=== PATIENT | male | born 1945 | race Two or more races ===

== ENCOUNTER 2020-03-12 08:50 | Outpatient (REF) | payer MEDICARE, SELFPAY ==
[2020-03-12 11:37] LABS: Alanine Aminotransferase 43 U/L (0-40); Albumin Level 4.1 g/dL (3.5-5.0); Alkaline Phosphatase 76 U/L (39-117); Anion Gap 12 (12-20); Aspartate Amino Transferase 31 U/L (5-37); Bilirubin Total 0.7 mg/dL (0.0-1.0); Blood Urea Nitrogen 15 mg/dL (9-16); Calcium 8.9 mg/dL (8.4-10.2); Carbon Dioxide 27 mmol/L (22-29); Chloride 105 mmol/L (96-108); Cholesterol 187 mg/dL; Estimated Glomerular Filt Rate > 60; Glucose Fasting 91 mg/dL (60-99); HDL Cholesterol 34 mg/dL; LDL Cholesterol Calculated 115 mg/dl; Potassium 4.5 mmol/l (3.3-5.1); Sodium 139 mmol/L (135-145); Total Protein 6.8 g/dL (6.5-8.0); Triglycerides 192 mg/dL
[2020-03-12 12:01] LABS: TSH reflex Free T4 0.72 mIU/mL (0.32-4.0)
== END 2020-03-12 08:51 | disposition home or self-care (01) ==
LOC: HO.HMGCLDS 08:50
PROVIDERS: PCP Nurse Practitioner Family; Visit Provider Nurse Practitioner Family
DX: G47.00 Insomnia, unspecified (principal); I10 Essential (primary) hypertension
CPT/HCPCS: 80053; 80061; 84443

== ENCOUNTER 2020-04-04 07:42 | Outpatient (REF) | payer MEDICARE, SELFPAY | END 2020-04-04 07:43 | disposition home or self-care (01) | LOC: HO.LAB 07:42 | PROVIDERS: PCP Nurse Practitioner Family; Visit Provider Internal Medicine | DX: Z20.828 Contact with and (suspected) exposure to other viral communicable diseases (principal) | CPT/HCPCS: C9803; U0003 ==

== ENCOUNTER 2020-07-04 14:50 | Outpatient (REF) | payer OTHER, SELFPAY ==
--- NOTE | ~2020-07-04 | US_ITS ---
EXAMINATION: US RETROPERITONEAL LIMITED (RENAL ONLY) CLINICAL INFORMATION: Unspecified abdominal pain. COMPARISON: Ultrasound abdominal aorta 09/08/2018 and ultrasound abdomen 11/23/2017. CT abdomen pelvis 02/18/2017. TECHNIQUE: Real-time imaging of the kidneys. FINDINGS: RIGHT KIDNEY: 12.0 x 5.2 x 6.3 cm (SAG x AP x TRV). The kidney is normal in size, contour, and echogenicity. Renal cortical thickness is normal. No calculi or focal parenchymal lesions. No hydronephrosis. LEFT KIDNEY: 11.0 x 6.3 x 5.3 cm (SAG x AP x TRV). The kidney is normal in size, contour, and echogenicity. Renal cortical thickness is normal. No renal calculi or hydronephrosis. There is anechoic cyst midpole measuring 3.0 x 3.2 x 4.1 cm US/US renal BI IMPRESSION: Anechoic cyst midpole left kidney. There are no echogenic stones or hydronephrosis.
[2020-07-04 11:14] LABS: MANUAL DIFF FLAG NO
[2020-07-04 11:17] LABS: Glucose Urine UA NEG (NEG); Leukocyte Esterase Urine NEG (NEG); Nitrite Urine NEG (NEG); Specific Gravity - Urine 1.025 (1.005-1.025); Urine Blood NEG (NEG); Urine Ketones NEG (NEG); Urine Protein NEG (NEG-TRACE)
[2020-07-04 11:20] LABS: Appearance Urine CLEAR; Color Urine YELLOW
[2020-07-04 11:27] LABS: Basophils Percent Auto 0.6 % (0-2); Eosinophils Absolute Auto 0.1 X10*3/uL (0.0-0.4); Eosinophils Percent Auto 2.3 % (0-4); Hematocrit 43.8 % (42-52); Hemoglobin 13.9 g/dl (14.0-18.0); Imm Gran Abs Auto 0.01 X10*3/uL (0.00-0.03); Imm Gran Pct Auto 0.2 % (0.0-0.4); Lymphocytes Absolute Auto 1.8 X10*3/uL (1.2-4.9); Lymphocytes Percent Auto 34.2 % (20-40); Mean Corpuscular HGB Conc 31.7 g/dl (31.0-36.0); Mean Corpuscular Hemoglobin 29.6 pg (27.0-33.0); Mean Corpuscular Volume 93.4 fL (80-98); Monocytes Absolute Auto 0.4 X10*3/uL (0.1-1.2); Monocytes Percent Auto 8.3 % (2-11); Neutrophils Absolute Auto 2.8 X10*3/uL (2.0-8.3); Neutrophils Percent Auto 54.4 % (45-73); Platelet Count 232 X10*3/uL (160-400); Red Blood Count 4.69 X10*6/uL (4.60-5.80); Red Cell Distribution Width 12.6 % (11.0-16.0); White Blood Count 5.2 X10*3/uL (4.8-10.8)
[2020-07-04 11:33] LABS: RBC Urine 0 /HPF (0); Squamous Epithelial Cell Urine TRACE /LPF; WBC Urine 0 /HPF (0-4)
[2020-07-04 11:48] LABS: Alanine Aminotransferase 27 U/L (0-40); Albumin Level 4.1 g/dL (3.5-5.0); Alkaline Phosphatase 72 U/L (39-117); Anion Gap 15 (12-20); Aspartate Amino Transferase 22 U/L (5-37); Bilirubin Total 0.7 mg/dL (0.0-1.0); Blood Urea Nitrogen 21 mg/dL (9-16); Calcium 8.8 mg/dL (8.4-10.2); Carbon Dioxide 26 mmol/L (22-29); Chloride 105 mmol/L (96-108); Estimated Glomerular Filt Rate > 60; Glucose Random 95 mg/dL (60-115); Potassium 4.7 mmol/L (3.3-5.1); Sodium 141 mmol/L (135-145); Total Protein 6.7 g/dL (6.5-8.0)
== END 2020-07-04 14:51 | disposition home or self-care (01) ==
LOC: HO.US 14:50
PROVIDERS: PCP Nurse Practitioner Family; Visit Provider Nurse Practitioner Family
DX: R10.9 Unspecified abdominal pain (principal)
CPT/HCPCS: 36415; 76775; 80053; 81001; 85025; 87086

== ENCOUNTER 2020-09-24 07:05 | Outpatient (REF) | payer MEDICARE, SELFPAY ==
[2020-09-24 08:14] LABS: Prostate Specific Antigen 5.32 ng/mL (<0.05-4.0)
== END 2020-09-24 07:06 | disposition home or self-care (01) ==
LOC: HO.LAB 07:05
PROVIDERS: Visit Provider Urology
DX: R35.1 Nocturia (principal)
CPT/HCPCS: 36415; 84153

== ENCOUNTER → 2020-09-25 09:50 | Outpatient (BNVA) | payer MEDICARE, SELFPAY | PROVIDERS: Visit Provider Urology | DX: N40.1 Benign prostatic hyperplasia with lower urinary tract symptoms (principal); R97.20 Elevated prostate specific antigen [PSA] | CPT/HCPCS: 99212 ==

== ENCOUNTER 2021-01-10 08:03 | Outpatient (REF) | payer OTHER, SELFPAY ==
[2021-01-10 11:09] LABS: Appearance Urine CLEAR; Color Urine YELLOW; Glucose Urine UA NEG (NEG); Leukocyte Esterase Urine NEG (NEG); Nitrite Urine NEG (NEG); Specific Gravity - Urine <= 1.005 (1.005-1.025); Urine Blood NEG (NEG); Urine Ketones NEG (NEG); Urine Protein NEG (NEG-TRACE)
[2021-01-10 11:16] LABS: MANUAL DIFF FLAG NO
[2021-01-10 11:24] LABS: Basophils Percent Auto 0.5 % (0-2); Eosinophils Absolute Auto 0.2 X10*3/uL (0.0-0.4); Eosinophils Percent Auto 3.4 % (0-4); Hematocrit 41.1 % (42-52); Hemoglobin 13.3 g/dl (14.0-18.0); Imm Gran Abs Auto 0.01 X10*3/uL (0.00-0.03); Imm Gran Pct Auto 0.2 % (0.0-0.4); Lymphocytes Absolute Auto 1.5 X10*3/uL (1.2-4.9); Lymphocytes Percent Auto 26.4 % (20-40); Mean Corpuscular HGB Conc 32.4 g/dl (31.0-36.0); Mean Corpuscular Hemoglobin 29.4 pg (27.0-33.0); Mean Corpuscular Volume 90.7 fL (80-98); Mean Platelet Volume 10.6 fL (9.4-12.4); Monocytes Absolute Auto 0.4 X10*3/uL (0.1-1.2); Monocytes Percent Auto 6.9 % (2-11); Neutrophils Absolute Auto 3.7 X10*3/uL (2.0-8.3); Neutrophils Percent Auto 62.6 % (45-73); Platelet Count 207 X10*3/uL (160-400); Red Blood Count 4.53 X10*6/uL (4.60-5.80); Red Cell Distribution Width 12.5 % (11.0-16.0); White Blood Count 5.8 X10*3/uL (4.8-10.8)
[2021-01-10 11:43] LABS: Alanine Aminotransferase 29 U/L (0-40); Albumin Level 3.8 g/dL (3.5-5.0); Alkaline Phosphatase 70 U/L (39-117); Anion Gap 11 (12-20); Aspartate Amino Transferase 26 U/L (5-37); Bilirubin Total 0.6 mg/dL (0.0-1.0); Blood Urea Nitrogen 16 mg/dL (9-16); Calcium 8.7 mg/dL (8.4-10.2); Carbon Dioxide 25 mmol/L (22-29); Chloride 111 mmol/L (96-108); Cholesterol 181 mg/dL; Estimated Glomerular Filt Rate > 60; Glucose Fasting 98 mg/dL (60-99); HDL Cholesterol 33 mg/dL; LDL Cholesterol Calculated 118 mg/dl; Potassium 4.3 mmol/L (3.3-5.1); Sodium 143 mmol/L (135-145); Total Protein 6.3 g/dL (6.5-8.0); Triglycerides 153 mg/dL
[2021-01-10 12:07] LABS: TSH reflex Free T4 0.87 uIU/mL (0.32-4.0)
== END 2021-01-10 08:04 | disposition home or self-care (01) ==
LOC: HO.HMGCLDS 08:03
PROVIDERS: PCP Nurse Practitioner Family; Visit Provider Nurse Practitioner Family
DX: Z00.00 Encounter for general adult medical examination without abnormal findings (principal)
CPT/HCPCS: 36415; 80053; 80061; 81003; 84443; 85025

== ENCOUNTER 2021-01-24 | Outpatient (REF) | payer OTHER, SELFPAY ==
[2021-01-24 11:38] LABS: OBS Int Ctl Valid YES; OBS1 NEGATIVE (NEGATIVE); OBS2 NEGATIVE (NEGATIVE); OBS3 NEGATIVE (NEGATIVE)
== END 2021-01-24 00:01 | disposition home or self-care (01) ==
LOC: HO.HMGCLNP
PROVIDERS: Visit Provider Nurse Practitioner Family
DX: Z87.19 Personal history of other diseases of the digestive system (principal)
CPT/HCPCS: 82270

== ENCOUNTER 2021-07-04 08:03 | Emergency (ER) | payer OTHER, SELFPAY ==
--- NOTE | 2021-07-04 08:10 | ECG_ITS ---
Test Reason : abdominal pain Blood Pressure : / mmHG Vent. Rate : 078 BPM Atrial Rate : 078 BPM P-R Int : 192 ms QRS Dur : 094 ms QT Int : 366 ms P-R-T Axes : 031 -22 -11 degrees QTc Int : 417 ms Normal sinus rhythm Septal infarct (cited on or before 02-JAN-2020) - could be related to lead placement Nonspecific ST and T wave abnormality Borderline ECG When compared with ECG of 02-JAN-2020 12:13, Questionable change in initial forces of Septal leads Referred By: Jennifer Sanders Electronically Signed By:JOSHUA HAY
--- NOTE | 2021-07-04 08:28 | ED.GENADULT ---
HPI - General Adult General Chief complaint: Headache Stated complaint: ABD PAIN,N/V,FULL VACC Time Seen by Provider: 07/04/21 08:09 Source: patient and EMS Mode of arrival: EMS Limitations: no limitations History of Present Illness HPI narrative: Patient comes to emergency room complaining of 2 days of generalized malaise, headache, diffuse body aches, mild abdominal cramping. Patient denies fever, burning of chills, no UTI or URI symptoms. Patient states he has a bit of chest pain, back pain, but in general everything hurts. Patient denies shortness of breath Related Data Home Medications Medication Instructions Recorded Confirmed gabapentin 300 mg capsule 0 mg PO 02/23/20 01/01/21 Previous Rx's Medication Instructions Recorded zolpidem 5 mg tablet 5 mg PO BEDTIME 30 Days #30 tab 03/27/20 ferrous sulfate 325 mg (65 mg 325 mg PO DAILY #90 tab 08/08/20 iron) tablet furosemide 20 mg tablet 20 mg PO DAILY PRN 90 Days #90 tab 08/08/20 finasteride 5 mg tablet 5 mg PO DAILY 90 Days #90 tab 09/25/20 amlodipine 5 mg tablet 5 mg PO DAILY 90 Days #90 tab 03/14/21 oseltamivir 75 mg capsule (Tamiflu) 75 mg PO BID 5 Days #10 cap 07/04/21 Allergies Allergy/AdvReac Type Severity Reaction Status Date / Time trazodone [TRAZODONE] Allergy Severe ANAPHYLAXIS Verified 01/01/21 10:23 advil PM Allergy Unknown stomach Uncoded 07/02/20 08:17 upset Review of Systems Review of Systems: Constitutional : No Weight loss, No Fever, No Chills, No Night Sweats, complaining of fatigue and generalized malaise for today's ENT/Mouth : No Hearing loss, No Ear Pain, No Nasal Congestion, No Sinus Pain, No Hoarseness, No sore throat, No Rhinorrhea, No Swallowing Difficulty Eyes: No Eye Pain, No Swelling, No Redness, No Foreign Body, No Discharge, No Vision Changes Cardiovascular : Complaining of nonspecific chest discomfort, no significant Chest Pain, No SOB, No Dyspnea on Exertion, No Orthopnea, No Edema, No Palpitations Respiratory : No Cough, No Sputum, No Wheezing, No Smoke Exposure, No Dyspnea Gastrointestinal : No Nausea, No Vomiting, No Diarrhea, No Constipation, No abdominal Pain only generalized discomfort/cramping, No Hematochezia, No Melena Genitourinary : no irregular bleeding, No Dysuria, No Urinary Frequency, No Hematuria, No Urinary Incontinence, No Urgency, No Flank Pain, No Urinary Flow Changes, No Hesitancy Musculoskeletal : No joint pain, complaining of diffuse Myalgias, No Joint Swelling Skin : No Skin Lesions, No rash Neuro : No Weakness, No Numbness, No Paresthesias, No Loss of Consciousness, No Dizziness, complaining of mild Headache Psych : No Anxiety/Panic, No Depression, No SI/HI/AH/VH, No Social Issues, Heme/Lymph: No Bruising, No Bleeding,No Lymphadenopathy Endocrine : No Polyuria, No Polydipsia, No Temperature Intolerance [facility] Past Medical History Medical History Anemia Aortic insufficiency Iron deficiency Mitral regurgitation PVD (peripheral vascular disease) Surgical History H/O colonoscopy History of inguinal hernia repair Family History Family History Father No problems noted. Mother No problems noted. Social History Social History Alcohol intake: current Alcohol intake frequency: does not drink Patient Tobacco Use Status: Current everyday Tobacco user Tobacco use type: Cigarette Cigarettes Per Day: 4 e-Cigarette/Vaping Use: Never Used Second Hand Smoke Exposure: No Use of substances other than those prescribed or required for medical reasons: No Advance Directives: No Advance Directives Information Provided: Yes Current occupational status: retired Physical Exam ED Vital Signs: Vital Signs - 24 hr 07/04/21 08:42 07/04/21 08:53 07/04/21 11:33 Temperature 99.7 F 100.6 F H 99.5 F Pulse Rate 80 69 Respiratory Rate 18 17 Blood Pressure 158/92 H 130/72 Pulse Oximetry 93 94 BMI result Body Mass Index 26.4 Const Other: Appearance: Alert. Oriented X3. No acute distress. Eyes: Pupils equal, round and reactive to light. ENT: Pharynx normal. Neck: Normal inspection. Neck supple. No lymph nodes noted. No crepitus CVS: Normal heart rate and rhythm. Pulses normal. Normal S1 and S2 Respiratory: No respiratory distress. Breath sounds normal. No Wheezing. No rales Abdomen: Soft and nontender. No rigidity. No distention. Skin: Skin warm and dry. Normal skin color. Normal skin turgor. Extremities: No lower extremity edema. No Lacerations. No Rash Neuro: Oriented X 3. No motor deficit. No sensory deficit. Moving all extremities. No slurred speech. CN 2 through 12 grossly intact Psych: calm, cooperative, normal affect Course Course Course Narrative: At this time, viral syndrome is suspected. Vitals, labs pending. Patient will be giving IV fluids, Tylenol Patient tested positive for influenza. Patient was given the 1st dose of Tamiflu 75 mg. Patient's troponin will be rechecked at noon. Troponin is improved from the 1st troponin. Patient was given Tamiflu. Patient will follow up with his primary care physician. Medical Decision Making Lab Data Result diagrams: 07/04/21 09:05 07/04/21 09:05 Labs: Lab Results 07/04/21 07/04/21 07/04/21 Range/Units 09:04 09:05 09:05 WBC 5.9 (4.8-10.8) X10*3/uL RBC 4.52 L (4.60-5.80) X10*6/uL Hgb 13.4 L (14.0-18.0) g/dl Hct 41.1 L (42.0-52.0) % MCV 90.9 (80.0-98.0) fL MCH 29.6 (27.0-33.0) pg MCHC 32.6 (31.0-36.0) g/dl RDW 12.9 (11.0-16.0) % Plt Count 158 L (160-400) X10*3/uL MPV 10.4 (9.4-12.4) fL Immature Gran % (Auto) 0.5 H (0.0-0.4) % Neut % (Auto) 74.4 H (45-73) % Lymph % (Auto) 12.5 L (20-40) % [place] % (Auto) 12.1 H (2-11) % Eos % (Auto) 0.0 (0-4) % Baso % (Auto) 0.5 (0-2) % Lymph # (Auto) 0.7 L (1.2-4.9) X10*3/uL [place] # (Auto) 0.7 (0.1-1.2) X10*3/uL Eos # (Auto) 0.0 (0.0-0.4) X10*3/uL Baso # (Auto) 0.0 (0.0-0.2) X10*3/uL Abs Immat Gran (auto) 0.03 (0.00-0.03) X10*3/uL Absolute Neuts (auto) 4.4 (2.0-8.3) x10*3/uL Absolute Nucleated RBC 0.000 (0.0-0.012) X10*3/uL Nucleated RBC % (auto) 0.0 (0.0-0.2) /100WBC PT 13.7 H (9.9-13.0) SEC INR 1.2 H (0.9-1.1) Sodium (135-145) mmol/L Potassium (3.3-5.1) mmol/L Chloride (96-108) mmol/L Carbon Dioxide (22-29) mmol/L Anion Gap (12-20) BUN (9-16) mg/dL Creatinine (0.5-1.4) mg/dL Estim Creat Clear Calc Estimated GFR Random Glucose (60-115) mg/dL Lactic Acid 0.9 (0.5-2.0) mmol/L Calcium (8.4-10.2) mg/dL Magnesium (1.6-2.6) mg/dL Total Bilirubin (0.0-1.0) mg/dL Direct Bilirubin (0.0-0.5) mg/dL AST (5-37) U/L ALT (0-40) U/L Alkaline Phosphatase (39-117) U/L Troponin I High Sens (<3.5-35.0) ng/L Total Protein (6.5-8.0) g/dL Albumin (3.5-5.0) g/dL Lipase (8-78) U/L COVID-19 (DAVID) (Negative) COVID-19 Clin Com Influenza Type A (TREY) (Negative) Influenza Type B (TREY) (Negative) Influenza A & B Note 07/04/21 07/04/21 07/04/21 Range/Units 09:05 09:05 09:05 WBC (4.8-10.8) X10*3/uL RBC (4.60-5.80) X10*6/uL Hgb (14.0-18.0) g/dl Hct (42.0-52.0) % MCV (80.0-98.0) fL MCH (27.0-33.0) pg MCHC (31.0-36.0) g/dl RDW (11.0-16.0) % Plt Count (160-400) X10*3/uL MPV (9.4-12.4) fL Immature Gran % (Auto) (0.0-0.4) % Neut % (Auto) (45-73) % Lymph % (Auto) (20-40) % [place] % (Auto) (2-11) % Eos % (Auto) (0-4) % Baso % (Auto) (0-2) % Lymph # (Auto) (1.2-4.9) X10*3/uL [place] # (Auto) (0.1-1.2) X10*3/uL Eos # (Auto) (0.0-0.4) X10*3/uL Baso # (Auto) (0.0-0.2) X10*3/uL Abs Immat Gran (auto) (0.00-0.03) X10*3/uL Absolute Neuts (auto) (2.0-8.3) x10*3/uL Absolute Nucleated RBC (0.0-0.012) X10*3/uL Nucleated RBC % (auto) (0.0-0.2) /100WBC PT (9.9-13.0) SEC INR (0.9-1.1) Sodium 138 (135-145) mmol/L Potassium 3.7 (3.3-5.1) mmol/L Chloride 106 (96-108) mmol/L Carbon Dioxide 26 (22-29) mmol/L Anion Gap 10 L (12-20) BUN 14 (9-16) mg/dL Creatinine 0.82 (0.5-1.4) mg/dL Estim Creat Clear Calc 71.3 Estimated GFR > 60 Random Glucose 116 H (60-115) mg/dL Lactic Acid (0.5-2.0) mmol/L Calcium 8.5 (8.4-10.2) mg/dL Magnesium 1.9 (1.6-2.6) mg/dL Total Bilirubin 0.7 (0.0-1.0) mg/dL Direct Bilirubin 0.3 (0.0-0.5) mg/dL AST 22 (5-37) U/L ALT 30 (0-40) U/L Alkaline Phosphatase 65 (39-117) U/L Troponin I High Sens 12.8 (<3.5-35.0) ng/L Total Protein 6.3 L (6.5-8.0) g/dL Albumin 3.7 (3.5-5.0) g/dL Lipase 23 (8-78) U/L COVID-19 (DAVID) Negative (Negative) COVID-19 Clin Com See Note Influenza Type A (TREY) (Negative) Influenza Type B (TREY) (Negative) Influenza A & B Note 07/04/21 07/04/21 Range/Units 09:05 11:53 WBC (4.8-10.8) X10*3/uL RBC (4.60-5.80) X10*6/uL Hgb (14.0-18.0) g/dl Hct (42.0-52.0) % MCV (80.0-98.0) fL MCH (27.0-33.0) pg MCHC (31.0-36.0) g/dl RDW (11.0-16.0) % Plt Count (160-400) X10*3/uL MPV (9.4-12.4) fL Immature Gran % (Auto) (0.0-0.4) % Neut % (Auto) (45-73) % Lymph % (Auto) (20-40) % [place] % (Auto) (2-11) % Eos % (Auto) (0-4) % Baso % (Auto) (0-2) % Lymph # (Auto) (1.2-4.9) X10*3/uL [place] # (Auto) (0.1-1.2) X10*3/uL Eos # (Auto) (0.0-0.4) X10*3/uL Baso # (Auto) (0.0-0.2) X10*3/uL Abs Immat Gran (auto) (0.00-0.03) X10*3/uL Absolute Neuts (auto) (2.0-8.3) x10*3/uL Absolute Nucleated RBC (0.0-0.012) X10*3/uL Nucleated RBC % (auto) (0.0-0.2) /100WBC PT (9.9-13.0) SEC INR (0.9-1.1) Sodium (135-145) mmol/L Potassium (3.3-5.1) mmol/L Chloride (96-108) mmol/L Carbon Dioxide (22-29) mmol/L Anion Gap (12-20) BUN (9-16) mg/dL Creatinine (0.5-1.4) mg/dL Estim Creat Clear Calc Estimated GFR Random Glucose (60-115) mg/dL Lactic Acid (0.5-2.0) mmol/L Calcium (8.4-10.2) mg/dL Magnesium (1.6-2.6) mg/dL Total Bilirubin (0.0-1.0) mg/dL Direct Bilirubin (0.0-0.5) mg/dL AST (5-37) U/L ALT (0-40) U/L Alkaline Phosphatase (39-117) U/L Troponin I High Sens 9.6 (<3.5-35.0) ng/L Total Protein (6.5-8.0) g/dL Albumin (3.5-5.0) g/dL Lipase (8-78) U/L COVID-19 (DAVID) (Negative) COVID-19 Clin Com Influenza Type A (TREY) Positive A (Negative) Influenza Type B (TREY) Negative (Negative) Influenza A & B Note See Note Discharge Plan Discharge Clinical Impression: Influenza A Patient Disposition: Home, Self-Care Instructions: Influenza (ED) Additional Instructions: Please follow-up with your primary care physician tomorrow. If you have any worsening or new symptoms, please return to the emergency room or call 911 Prescriptions: New oseltamivir [Tamiflu] 75 mg capsule 75 mg PO BID 5 Days Qty: 10 0RF No Action zolpidem 5 mg tablet 5 mg PO BEDTIME 30 Days Qty: 30 0RF amlodipine 5 mg tablet 5 mg PO DAILY 90 Days Qty: 90 0RF gabapentin 300 mg capsule 0 mg PO 0RF ferrous sulfate 325 mg (65 mg iron) tablet 325 mg PO DAILY Qty: 90 0RF furosemide 20 mg tablet 20 mg PO DAILY PRN (Reason: edema) 90 Days Qty: 90 0RF finasteride 5 mg tablet 5 mg PO DAILY 90 Days Qty: 90 1RF
[2021-07-04 08:42] VITALS: BP 130/82; BP 158/92; PULSE 80; PULSE 88; RESP 18; TEMP 37.6; O2SAT 93; O2SAT 98; BMI 26.4
[2021-07-04 08:53] VITALS: TEMP 38.1
[2021-07-04] MEDS: 0.9 % Sodium Chloride 1,000 ML 999 ML IVCONT (09:13)
[2021-07-04] MEDS: Acetaminophen 325 MG TABLET 650 MG PO (09:13)
[2021-07-04 09:16] LABS: MANUAL DIFF FLAG NO
[2021-07-04 09:19] LABS: Basophils Percent Auto 0.5 % (0-2); Hematocrit 41.1 % (42.0-52.0); Hemoglobin 13.4 g/dl (14.0-18.0); Imm Gran Abs Auto 0.03 X10*3/uL (0.00-0.03); Imm Gran Pct Auto 0.5 % (0.0-0.4); Lymphocytes Absolute Auto 0.7 X10*3/uL (1.2-4.9); Lymphocytes Percent Auto 12.5 % (20-40); Mean Corpuscular HGB Conc 32.6 g/dl (31.0-36.0); Mean Corpuscular Hemoglobin 29.6 pg (27.0-33.0); Mean Corpuscular Volume 90.9 fL (80.0-98.0); Mean Platelet Volume 10.4 fL (9.4-12.4); Monocytes Absolute Auto 0.7 X10*3/uL (0.1-1.2); Monocytes Percent Auto 12.1 % (2-11); Neutrophils Absolute Auto 4.4 x10*3/uL (2.0-8.3); Neutrophils Percent Auto 74.4 % (45-73); Platelet Count 158 X10*3/uL (160-400); Red Blood Count 4.52 X10*6/uL (4.60-5.80); Red Cell Distribution Width 12.9 % (11.0-16.0); White Blood Count 5.9 X10*3/uL (4.8-10.8)
[2021-07-04 09:25] LABS: INTERNATIONAL NORM RATIO 1.2 (0.9-1.1); Prothrombin Time 13.7 SEC (9.9-13.0)
[2021-07-04 09:29] LABS: Lactic Acid 0.9 mmol/L (0.5-2.0)
[2021-07-04 09:35] LABS: Alanine Aminotransferase 30 U/L (0-40); Albumin Level 3.7 g/dL (3.5-5.0); Alkaline Phosphatase 65 U/L (39-117); Anion Gap 10 (12-20); Aspartate Amino Transferase 22 U/L (5-37); Bilirubin Direct 0.3 mg/dL (0.0-0.5); Bilirubin Total 0.7 mg/dL (0.0-1.0); Blood Urea Nitrogen 14 mg/dL (9-16); Calcium 8.5 mg/dL (8.4-10.2); Carbon Dioxide 26 mmol/L (22-29); Chloride 106 mmol/L (96-108); Creatinine Clr Calc Pharmacy 71.3; Estimated Glomerular Filt Rate > 60; Glucose Random 116 mg/dL (60-115); Lipase 23 U/L (8-78); Magnesium 1.9 mg/dL (1.6-2.6); Potassium 3.7 mmol/L (3.3-5.1); Sodium 138 mmol/L (135-145); Total Protein 6.3 g/dL (6.5-8.0)
[2021-07-04 09:36] LABS: COVID-19 Test Negative (Negative); IDNOW Serial# 16C4AD1C
[2021-07-04 09:38] LABS: Troponin-I High Sensitivity 12.8 ng/L (<3.5-35.0)
[2021-07-04 09:46] LABS: IDNOW Serial# 08D9AD1C; Influenza A Positive (Negative); Influenza B2 Negative (Negative)
[2021-07-04] MEDS: Oseltamivir Phosphate 75 MG CAPSULE PO (10:18)
[2021-07-04 11:33] VITALS: BP 130/72; PULSE 69; RESP 17; TEMP 37.5; O2SAT 94
[2021-07-04 12:18] LABS: Troponin-I High Sensitivity 9.6 ng/L (<3.5-35.0)
[2021-07-04 13:59] VITALS: BP 140/72; PULSE 69; RESP 16; TEMP 37.2; O2SAT 95
== END 2021-07-04 14:02 | disposition home or self-care (01) ==
PROVIDERS: Emergency Provider Emergency Medicine; PCP Nurse Practitioner Family
DX: J11.1 Influenza due to unidentified influenza virus with other respiratory manifestations (principal); Z20.822 Contact with and (suspected) exposure to COVID-19; R50.9 Fever, unspecified
CPT/HCPCS: 36415; 80048; 80076; 83605; 83690; 83735; 84484; 85025; 85610; 87040; 87502; 87635; 93005; 96360; 99284; 99285

== ENCOUNTER 2021-07-09 07:41 | Outpatient (REF) | payer OTHER, SELFPAY ==
[2021-07-09 07:54] LABS: MANUAL DIFF FLAG NO
[2021-07-09 08:24] LABS: Basophils Percent Auto 0.5 % (0-2); Eosinophils Absolute Auto 0.1 X10*3/uL (0.0-0.4); Eosinophils Percent Auto 2.3 % (0-4); Hematocrit 41.9 % (42.0-52.0); Hemoglobin 13.6 g/dl (14.0-18.0); Imm Gran Abs Auto 0.01 X10*3/uL (0.00-0.03); Imm Gran Pct Auto 0.2 % (0.0-0.4); Lymphocytes Absolute Auto 2.5 X10*3/uL (1.2-4.9); Lymphocytes Percent Auto 44.1 % (20-40); Mean Corpuscular HGB Conc 32.5 g/dl (31.0-36.0); Mean Corpuscular Hemoglobin 29.3 pg (27.0-33.0); Mean Corpuscular Volume 90.3 fL (80.0-98.0); Mean Platelet Volume 10.8 fL (9.4-12.4); Monocytes Absolute Auto 0.4 X10*3/uL (0.1-1.2); Monocytes Percent Auto 7.4 % (2-11); Neutrophils Absolute Auto 2.5 x10*3/uL (2.0-8.3); Neutrophils Percent Auto 45.5 % (45-73); Platelet Count 180 X10*3/uL (160-400); Red Blood Count 4.64 X10*6/uL (4.60-5.80); Red Cell Distribution Width 12.5 % (11.0-16.0); White Blood Count 5.6 X10*3/uL (4.8-10.8)
[2021-07-09 09:43] LABS: PSA,Total (Free>4and<10) 4.04 ng/mL (0.00-4.00)
[2021-07-10 11:52] LABS: Free Prostate Spec Ag 0.5 ng/mL; Percent Free Prostate Spec Ag 15 % (calc) (>25); Prostate Specific Ag Total 3.3 ng/mL (< OR = 4.0)
== END 2021-07-09 07:42 | disposition home or self-care (01) ==
LOC: HO.LAB 07:41
PROVIDERS: Nurse Practitioner Family; Visit Provider Urology
DX: Z12.5 Encounter for screening for malignant neoplasm of prostate (principal); N40.1 Benign prostatic hyperplasia with lower urinary tract symptoms; N13.8 Other obstructive and reflux uropathy; Z87.19 Personal history of other diseases of the digestive system
CPT/HCPCS: 36415; 84153; 84154; 85025

== ENCOUNTER → 2021-07-17 12:52 | Outpatient (BNVA) | payer OTHER, SELFPAY | PROVIDERS: PCP Nurse Practitioner Family; Visit Provider Urology | DX: R97.20 Elevated prostate specific antigen [PSA] (principal) | CPT/HCPCS: 99212 ==

== ENCOUNTER 2021-08-15 07:58 | Outpatient (REF) | payer OTHER, SELFPAY ==
--- NOTE | ~2021-08-15 | XR_ITS ---
EXAMINATION: XR CHEST CLINICAL INFORMATION: Nicotine dependence COMPARISON: Chest radiograph from 01/02/2020 TECHNIQUE: 2 views of the chest were obtained. FINDINGS: Chronic interstitial lung markings. Slight bronchial thickening which can be seen in infectious/inflammatory etiologies. No pneumothorax. Trachea is midline. Cardiomediastinal silhouette is stable. Aorta demonstrates tortuosity. No large pleural effusion. Degenerative changes of the thoracolumbar spine. Soft tissues are unremarkable XR/XR chest 2V IMPRESSION: 1. Chronic interstitial lung markings. 2. Slight bronchial thickening which can be seen in infectious/inflammatory etiologies.
[2021-08-15 11:36] LABS: Appearance Urine CLEAR; Color Urine YELLOW; Glucose Urine UA NEG (NEG); Leukocyte Esterase Urine NEG (NEG); Nitrite Urine NEG (NEG); UACC Culture Trigger NO; Urine Blood TRACE (NEG); Urine Ketones NEG (NEG); Urine Protein NEG (NEG-TRACE)
[2021-08-15 12:09] LABS: Alanine Aminotransferase 16 U/L (0-40); Alkaline Phosphatase 61 U/L (39-117); Anion Gap 14 (12-20); Aspartate Amino Transferase 14 U/L (5-37); Bilirubin Total 0.7 mg/dL (0.0-1.0); Blood Urea Nitrogen 17 mg/dL (9-16); Calcium 9.3 mg/dL (8.4-10.2); Carbon Dioxide 23 mmol/L (22-29); Chloride 107 mmol/L (96-108); Cholesterol 179 mg/dL; Estimated Glomerular Filt Rate > 60; Glucose Random 104 mg/dL (60-115); HDL Cholesterol 31 mg/dL; LDL Cholesterol Calculated 117 mg/dl; Potassium 4.4 mmol/L (3.3-5.1); Sodium 140 mmol/L (135-145); Total Protein 6.6 g/dL (6.5-8.0); Triglycerides 158 mg/dL
[2021-08-15 12:16] LABS: TSH reflex Free T4 0.73 uIU/mL (0.32-4.0)
[2021-08-15 13:14] LABS: Squamous Epithelial Cell Urine 1+ /LPF
== END 2021-08-15 07:59 | disposition home or self-care (01) ==
LOC: HO.HMGCLDS 07:58
PROVIDERS: Visit Provider Nurse Practitioner Family
DX: R01.1 Cardiac murmur, unspecified (principal); R05.9 Cough, unspecified; F17.200 Nicotine dependence, unspecified, uncomplicated
CPT/HCPCS: 36415; 71046; 80053; 80061; 81001; 84443

== ENCOUNTER 2021-09-18 13:08 | Outpatient (REF) | payer OTHER, SELFPAY ==
--- NOTE | ~2021-09-18 | US_ITS ---
EXAMINATION: US RENAL CLINICAL INFORMATION: Left flank pain. COMPARISON: Ultrasound renal 07/04/2020. Ultrasound urinary bladder 11/05/2017. Ultrasound abdomen 11/23/2017. CT abdomen pelvis 02/18/2017. TECHNIQUE: Real-time imaging of the kidneys and bladder. FINDINGS: RIGHT KIDNEY: Absent. LEFT KIDNEY: 10.8 x 5.8 x 5.8 cm (SAG x AP x TRV). The kidney is normal in size, contour, and echogenicity. Renal cortical thickness is normal. No renal calculi or hydronephrosis. There is anechoic cyst in the upper pole measuring 5.7 x 3.4 x 3.6 cm and 1.8 x 1.2 x 1.2 cm. US/US renal LT IMPRESSION: 2 left renal cysts. No echogenic stones or hydronephrosis seen.
== END 2021-09-18 13:09 | disposition home or self-care (01) ==
LOC: HO.US 13:08
PROVIDERS: PCP Nurse Practitioner Family; Visit Provider Nurse Practitioner Family
DX: R10.9 Unspecified abdominal pain (principal); N28.1 Cyst of kidney, acquired
CPT/HCPCS: 76775

== ENCOUNTER 2022-01-28 07:37 | Outpatient (REF) | payer OTHER, SELFPAY | END 2022-01-28 07:38 | disposition home or self-care (01) | LOC: HO.LAB 07:37 | PROVIDERS: Visit Provider Urology | DX: Z12.5 Encounter for screening for malignant neoplasm of prostate (principal); R97.20 Elevated prostate specific antigen [PSA] | CPT/HCPCS: 36415; 84153 ==

== ENCOUNTER → 2022-01-31 13:33 | Outpatient (BNVA) | payer OTHER, SELFPAY | PROVIDERS: PCP Nurse Practitioner Family; Visit Provider Urology | DX: N40.1 Benign prostatic hyperplasia with lower urinary tract symptoms (principal); N13.8 Other obstructive and reflux uropathy; R97.20 Elevated prostate specific antigen [PSA] | CPT/HCPCS: Q3014 ==

== ENCOUNTER 2022-03-01 12:51 | Emergency (ER) | payer OTHER, SELFPAY ==
--- NOTE | ~2022-03-01 | US_ITS ---
EXAMINATION: US VENOUS ULTRASOUND WITH DOPPLER LOWER EXTREMITY, LEFT CLINICAL INFORMATION: Calf tenderness and pain. COMPARISON: None TECHNIQUE: Ultrasound of the deep veins is performed from the hip to the calf with compression sonography and color and pulse Doppler assessment. Spectral analysis with color-flow imaging is performed. FINDINGS: There is normal venous compression and respiratory variation and augmented flow. The visualized common femoral vein, superficial femoral vein, profunda femoral vein, popliteal vein, and the trifurcation region shows no evidence of deep venous thrombosis. There is no significant popliteal fossa cyst. If the patient's symptoms persist, followup ultrasound in 5 days 7 days might be of value to exclude proximal propagation from a non-visualized calf vein. US/US venous duplex LE LT IMPRESSION: No DVT demonstrated in the left lower extremity.
--- NOTE | ~2022-03-01 | XR_ITS ---
EXAMINATION: XR HAND, LEFT CLINICAL INFORMATION: Pain, swelling COMPARISON: None TECHNIQUE: PA, lateral, and oblique views of the left hand. FINDINGS: The bones and soft tissues are normal. No fracture. Alignment is anatomic. Joint spaces are maintained. No erosions or soft tissue calcifications. XR/XR hand LT 2V IMPRESSION: Normal left hand.
[2022-03-01 13:32] VITALS: BP 157/78; PULSE 70; RESP 16; TEMP 36.6; O2SAT 96; BMI 22.0
--- NOTE | 2022-03-01 13:33 | ED_ITS ---
HPI - General Adult General Chief complaint: Extremity Problem <Yenny Tolbert CNP - Last Filed: 03/01/22 13:44> Stated complaint: l hand swelling and l leg pain <Yenny Tolbert CNP - Last Filed: 03/01/22 13:44> Time Seen by Provider: 03/01/22 14:27 <Yenny Tolbert CNP - Last Filed: 03/01/22 13:44> Source: patient <JUAN R Napoles - Last Filed: 03/01/22 17:56> Mode of arrival: ambulatory <JUAN R Napoles - Last Filed: 03/01/22 17:56> Limitations: language barrier <JUAN R Napoles - Last Filed: 03/01/22 17:56> History of Present Illness HPI narrative: 76-year-old male with history of HTN, anemia, aortic insufficiency, mitral regurgitation, peripheral vascular disease who presents to the ER for evaluation of nontraumatic left hand swelling as well as left lower leg pain. He reports the pain and swelling in the hand started a couple of days ago. It is worse with palpation and making a fist. He denies any injury or trauma. He denies any weakness or numbness. He states his hand has felt a little warm. No open wounds. Left leg pain has been going on for about a month with no precipitating injury. He denies any swelling but reports pain along the back of his leg, both at rest and with movement. He states the pain is located in the back of his knee, his calf and down to his ankle. He denies any swelling. He denies any numbness, weakness tingling. No fever or chills. No shortness of breath or chest pain. <JUAN R Napoles - Last Filed: 03/01/22 17:56> MD complaint: Left hand pain and left lower leg pain <JUAN R Napoles - Last Filed: 03/01/22 17:56> Onset (ago): week(s) <JUAN R Napoles Last Filed: 03/01/22 17:56> Location: left, upper extremity and lower extremity <JUAN R Napoles Last Filed: 03/01/22 17:56> Radiation: non-radiation <JUAN R Napoles - Last Filed: 03/01/22 17:56> Severity: moderate <JUAN R Napoles - Last Filed: 03/01/22 17:56> Severity scale (1-10): 5 <JUAN R Napoles - Last Filed: 03/01/22 17:56> Quality: aching <JUAN R Napoles - Last Filed: 03/01/22 17:56> Pain Consistency: intermittent <JUAN R Napoles - Last Filed: 03/01/22 17:56> Relieving factors: none <JUAN R Napoles - Last Filed: 03/01/22 17:56> Exacerbating factors: none <JUAN R Napoles - Last Filed: 03/01/22 17:56> Associated symptoms: denies other symptoms <JUAN R Napoles - Last Filed: 03/01/22 17:56> Treatments prior to arrival: none <JUAN R Napoles - Last Filed: 03/01/22 17:56> Related Data Home medications: Previous Rx's Medication Instructions Recorded amlodipine 5 mg tablet 5 mg PO DAILY 90 days #90 tabs 08/13/21 zolpidem 5 mg tablet 5 mg PO BEDTIME 30 days #30 tabs 08/13/21 azithromycin 250 mg tablet See Rx Instructions PO .COMPLEX #6 08/15/21 tabs ferrous sulfate 325 mg (65 mg 325 mg PO DAILY #90 tabs 11/10/21 iron) tablet finasteride 5 mg tablet 5 mg PO DAILY 90 days #90 tabs 01/31/22 cephalexin 500 mg capsule 500 mg PO Q6H 7 days #28 caps 03/01/22 doxycycline hyclate 100 mg tablet 100 mg PO BID 7 days #14 tabs 03/01/22 <Yenny Tolbert CNP - Last Filed: 03/01/22 13:44> Allergies/adverse reactions: Allergies Allergy/AdvReac Type Severity Reaction Status Date / Time trazodone [TRAZODONE] Allergy Severe ANAPHYLAXIS Verified 01/31/22 13:34 advil PM Allergy Unknown stomach Uncoded 01/31/22 13:34 upset <Yenny Tolbert CNP - Last Filed: 03/01/22 13:44> Review of Systems Review of Systems: Constitutional: No Fever, No Chills Cardiovascular: No Chest Pain, No SOB, No Orthopnea, No Edema Respiratory: No Cough, No Sputum Gastrointestinal: No Nausea, No Vomiting, No Diarrhea, No abdominal Pain Genitourinary: No Dysuria, No Urinary Frequency, No Hematuria Musculoskeletal: + joint pain, + Myalgias Skin: No Skin Lesions, + rash Neuro: No Weakness, No Numbness, No Dizziness, No Headache Psych: No Anxiety/Panic, No Depression Heme/Lymph: No Bruising, No Lymphadenopathy <JUAN R Napoles - Last Filed: 03/01/22 17:56> [facility] Past Medical History Medical History: Medical History Anemia Aortic insufficiency Iron deficiency Mitral regurgitation PVD (peripheral vascular disease) <Yenny Tolbert CNP - Last Filed: 03/01/22 13:44> Surgical History: Surgical History H/O colonoscopy History of inguinal hernia repair <Yenny Tolbert CNP - Last Filed: 03/01/22 13:44> Family History Family History: Family History Father No problems noted. Mother No problems noted. <Yenny Tolbert CNP - Last Filed: 03/01/22 13:44> Social History Social History: Social History Alcohol intake: current Alcohol intake frequency: does not drink Patient Tobacco Use Status: Current everyday Tobacco user Tobacco use type: Cigarette Cigarettes Per Day: 6 e-Cigarette/Vaping Use: Never Used Second Hand Smoke Exposure: No Advance Directives: Yes Advance Directives Information Provided: No Advance Directives on File: No Current occupational status: retired <Yenny Tolbert CNP - Last Filed: 03/01/22 13:44> Physical Exam ED Vital Signs: Vital Signs - 24 hr 03/01/22 13:32 Temperature 98 F Pulse Rate 70 Respiratory Rate 16 Blood Pressure 157/78 H Pulse Oximetry 96 Oxygen Delivery Method Room Air BMI result Body Mass Index 22.0 <Yenny Tolbert CNP - Last Filed: 03/01/22 13:44> Vital Signs - 24 hr 03/01/22 13:32 Temperature 98 F Pulse Rate 70 Respiratory Rate 16 Blood Pressure 157/78 H Pulse Oximetry 96 Oxygen Delivery Method Room Air BMI result Body Mass Index 22.0 <JUAN R Napoles - Last Filed: 03/01/22 17:56> Appearance: Alert. Oriented X3. No acute distress. HEENT: normal inspection CVS: Normal heart rate and rhythm. Pulses normal. Respiratory: No respiratory distress. Skin: Skin warm and dry. Normal skin color. Normal skin turgor. No rashes. Extremities: Normal inspection of bilateral lower legs. No peripheral edema. There is tenderness of the left posterior calf and popliteal fossa area no palpable mass. Leg is warm and well perfused, neurovascularly intact distally. Steady gait. Dorsal aspect of the left hand with mild diffuse swelling, erythema and warmth. No open wounds. Equal repairer hairspring strength bilaterally. Neuro: Oriented X 3. No motor deficit. No sensory deficit. <JUAN R Napoles - Last Filed: 03/01/22 17:56> Course Course Course Narrative: RME: Patient is a 76 old male with a past medical history of anemia, aortic insufficiency, mitral regurgitation, PVD. Presents emergency department today for evaluation left hand swelling and pain, without precipitating injury (right hand dominant). Also complaining of left leg pain; from foot up to the knee x 1 month he has not seen a doctor for this and denies any precipitating injury. Denies personal history of DVT/PE personal history of cancer, recent prolonged immobilization, extensive travel. Denies any swelling, redness, weakness, or paresthesia to the extremity. PE: Left hand with dorsal swelling, redness, no warmth or obvious deformity. Full AROM to wrist and digits. bilateral LE 2+ DP/PT pulse, LLE without swelling, redness, warmth. Wells negative, does not appear consistent with DVT, pain likely consistent with PVD. Bilateral upper and lower extremities are neurovascularly intact distally. Plan: XR left hand, acetaminophen for pain. <Yenny Tolbert CNP - Last Filed: 03/01/22 13:44> Reevaluation(s) Reevaluation #1: X-ray of the hand is normal. His exam is consistent with an early cellulitis. No systemic signs of infection. Will start on oral antibiotics neb follow-up with his PCP. His lower extremity ultrasound did not show any evidence of DVT. Question PVD versus muscle strain as etiology of his pain. He is ambulating well. Will treat conservatively with [id number]-[id number] Tylenol and Motrin, have him see his PCP as well for this complaint. Patient stable for discharge home. <JUAN R Napoles - Last Filed: 03/01/22 17:56> Medications Administered Discontinued Medications Generic Name Dose Route Start Last Admin Trade Name Freq PRN Reason Stop Dose Admin Acetaminophen 975 mg 03/01/22 13:40 03/01/22 13:44 Acetaminophen 325 Mg Tablet PO 03/01/22 13:41 975 mg ONCE ONE Administration <Yenny Tolbert CNP - Last Filed: 03/01/22 13:44> Medications Administered Discontinued Medications Generic Name Dose Route Start Last Admin Trade Name Freq PRN Reason Stop Dose Admin Acetaminophen 975 mg 03/01/22 13:40 03/01/22 13:44 Acetaminophen 325 Mg Tablet PO 03/01/22 13:41 975 mg ONCE ONE Administration <JUAN R Napoles - Last Filed: 03/01/22 17:56> Discharge Plan Discharge Clinical Impression: Cellulitis of hand, left <Yenny Tolbert CNP - Last Filed: 03/01/22 13:44> Patient Disposition: Home, Self-Care <Yenny Tolbert CNP - Last Filed: 03/01/22 13:44> Instructions: Cellulitis (ED) <Yenny Tolbert CNP - Last Filed: 03/01/22 13:44> Additional Instructions: Your ultrasound did not show any evidence of blood clots. Recommend taking Tylenol as needed for your leg pain. Recommend taking the prescribed antibiotics for the swelling and redness of your hand. Use warm compresses to the area daily. Recommend following up with your doctor for further evaluation. If you develop new or worsening symptoms call 911 or come back to the ER for further evaluation. Chaney ultrasonido no mostr? ninguna evidencia de co?gulos de letitia. Recomiende vance Tylenol seg?n sea necesario para el dolor de piernas. Recomiende vance los antibi?ticos recetados para la hinchaz?n y el enrojecimiento de la mano. Use compresas tibias en el ?sofie todos los d?as. Recomiende un seguimiento con chaney m?dico para yanick evaluaci?n adicional. Si desarrolla s?ntomas nuevos o que empeoran, llame al 911 o regrese a la foreign de emergencias para yanick evaluaci?n adicional. <Yenny Tolbert CNP - Last Filed: 03/01/22 13:44> Prescriptions: New doxycycline hyclate 100 mg tablet 100 mg PO BID 7 Days Qty: 14 0RF cephalexin 500 mg capsule 500 mg PO Q6H 7 Days Qty: 28 0RF No Action azithromycin 250 mg tablet See Rx Instructions PO .COMPLEX Qty: 6 0RF Rx Instructions: For 250 mg dose pack: take 500 mg today (day 1), then 250 mg for 4 days (days 2-5) PO ferrous sulfate 325 mg (65 mg iron) tablet 325 mg PO DAILY Qty: 90 0RF zolpidem 5 mg tablet 5 mg PO BEDTIME 30 Days Qty: 30 1RF amlodipine 5 mg tablet 5 mg PO DAILY 90 Days Qty: 90 0RF finasteride 5 mg tablet 5 mg PO DAILY 90 Days Qty: 90 3RF <Yenny Tolbert CNP - Last Filed: 03/01/22 13:44> Referrals: Nayan Choe, [facility] [Primary Care Provider] - <Yenny Tolbert CNP - Last Filed: 03/01/22 13:44>
[2022-03-01] MEDS: Acetaminophen 325 MG TABLET 975 MG PO (13:44)
== END 2022-03-01 18:10 | disposition home or self-care (01) ==
PROVIDERS: Emergency Provider Emergency Medicine; PCP Nurse Practitioner Family
DX: L03.114 Cellulitis of left upper limb (principal); M79.662 Pain in left lower leg; M79.642 Pain in left hand; I10 Essential (primary) hypertension; F17.210 Nicotine dependence, cigarettes, uncomplicated; Z79.899 Other long term (current) drug therapy
CPT/HCPCS: 73120; 93971; 99283; 99284

== ENCOUNTER 2022-08-04 06:35 | Outpatient (REF) | payer OTHER, SELFPAY ==
[2022-08-04 08:20] LABS: PSA,Total (Free>4and<10) 6.26 ng/mL (0.00-4.00)
[2022-08-05 09:44] LABS: Free Prostate Spec Ag 0.7 ng/mL; Percent Free Prostate Spec Ag 13 % (calc) (>25); Prostate Specific Ag Total 5.5 ng/mL (< OR = 4.0)
== END 2022-08-04 06:36 | disposition home or self-care (01) ==
LOC: HO.LAB 06:35
PROVIDERS: Visit Provider Urology
DX: Z12.5 Encounter for screening for malignant neoplasm of prostate (principal); R97.20 Elevated prostate specific antigen [PSA]
CPT/HCPCS: 36415; 84153; 84154

== ENCOUNTER → 2022-08-05 12:26 | Outpatient (BNVA) | payer OTHER, SELFPAY | PROVIDERS: PCP Nurse Practitioner Family; Visit Provider Urology | DX: N40.1 Benign prostatic hyperplasia with lower urinary tract symptoms (principal); N13.8 Other obstructive and reflux uropathy; R33.9 Retention of urine, unspecified; R97.20 Elevated prostate specific antigen [PSA] | CPT/HCPCS: 99212 ==

== ENCOUNTER 2023-03-13 07:44 | Outpatient (REF) | payer OTHER, SELFPAY | END 2023-03-13 07:45 | disposition home or self-care (01) | LOC: HO.LAB 07:44 | PROVIDERS: PCP Nurse Practitioner Family; Visit Provider Urology | DX: Z12.5 Encounter for screening for malignant neoplasm of prostate (principal); R97.20 Elevated prostate specific antigen [PSA] | CPT/HCPCS: 36415; 84153 ==

== ENCOUNTER 2023-03-20 14:50 | Outpatient (AMB) | payer OTHER, SELFPAY ==
--- NOTE | 2023-03-20 15:16 | A.OFFVIS_ITS ---
Intake Intake Visit Reasons: 6M PSA(set) Intake Note: Patient is Present for Follow Up PSA Urology Medication: Finasteride Antibiotic Allergies: none Allergies trazodone [TRAZODONE] Allergy (Severe, Verified 08/05/22 13:42) ANAPHYLAXIS advil PM Allergy (Unknown, Uncoded 08/05/22 13:42) stomach upset Medication List - Last Reconciled 03/20/23 by Thanh Caceres MD amlodipine 5 mg PO DAILY 90 days azithromycin For 250 mg dose pack: take 500 mg today (day 1), then 250 mg for 4 days (days 2-5) PO [biofreeze roll-On As directed] cephalexin 500 mg PO Q6H 7 days doxycycline hyclate 100 mg PO BID 7 days ferrous sulfate 325 mg PO DAILY finasteride 5 mg PO DAILY 90 days finasteride 5 mg PO DAILY 90 days [Male Guard Pads As directed] zolpidem 5 mg PO BEDTIME 30 days HPI HPI Comments History of Present Illness Details Mr Turner is a very pleasant Mohawk speaking male. They are a patient of Dr. Nova. They are seen in the office today for the following urologic conditions. - BPH - incomplete bladder emptying - elevated PSA Mohawk translation provided in office by qualified biomedical equipment technician PSA has fallen on finasteride to 4.0 Would continue Six month repeat Lower Urinary Tract Symptoms: Current visit is for interval assessment of BPH symptoms Current treatment includes - no medication Prior therapy - alpha rachel, 5-AR, anti-muscarinic. Prostate Symptom Score Moderate (9-19), Bother 2 09/22 , Mild (0-8), Bother 2. Symptoms include frequency, urgency, weak stream, nocturia (>2), , and are improving. Prior Prostate Score moderate. PSA 03/22 4.1, 08/21 4.3, 09/22 4.4, 09/23 4.4, 09/24 PSA 5.3, 07/26 4.0 15%, 01/25 4.4 , 08/26 5.5 13% Prostate volume 30-50gm. Testing at next visit will include restart finasteride, repeat PSA in 6 months PFSH Medical History Anemia Aortic insufficiency Iron deficiency Mitral regurgitation PVD (peripheral vascular disease) Surgical History H/O colonoscopy History of inguinal hernia repair Family History Father No problems noted. Mother No problems noted. Social History Alcohol intake: current Alcohol intake frequency: does not drink Patient Tobacco Use Status: Current everyday Tobacco user Tobacco use type: Cigarette Cigarettes Per Day: 6 e-Cigarette/Vaping Use: Never Used Second Hand Smoke Exposure: No Current occupational status: retired Review of Systems Const Denies chills and Denies fever(s) Card Reports no additional complaints and Denies syncope Resp Denies cough GI Denies abdominal pain and Denies heartburn Reports as per HPI and Denies change in libido Neuro Denies syncope Psych Denies change in libido Endo Denies change in libido Physical Exam Const General: cooperative, healthy appearing, comfortable and no acute distress Orientation/consciousness: patient oriented x3 HEENT Face and sinus: Yes normal facial exam Mouth: moist mucous membranes Neck Neck: Yes normal visual inspection, Yes full ROM and Yes trachea midline Chest Chest palpation & inspection: normal inspection of the chest Resp Effort & Inspection: normal respiratory effort, able to speak in complete sentences and no respiratory distress GI Inspection: Yes normal to inspection Back/Spine/Pelvis Cervical Spine: normal cervical lordosis Thoracic/Lumbar Spine: thoracic and lumbar spine normal to inspection Skin General skin exam: no rashes or lesions noted Neuro General: patient oriented x3, gait normal, tone normal and moves all extremities Extrem General: Yes normal to inspection and Yes capillary refill normal Assessment & Plan Assessment & Plan (1) Elevated PSA: Code(s): R97.20 - Elevated prostate specific antigen [PSA] (2) Lower urinary tract symptoms due to benign prostatic hyperplasia: Code(s): N40.1 - Benign prostatic hyperplasia with lower urinary tract symptoms Plan Six month follow-up PSA Orders: Orders Prostate Specific Antigen 6 Months R97.20 - Elevated prostate specific antigen [PSA] Patient Instructions: Imaging studies, laboratory and physical exam results were discussed and reviewed in detail. No major barriers to patient understanding were identified. An opportunity to ask questions regarding the treatment plan was provided. All questions were answered. The patient expressed understanding and agreement with the above treatment plan. The patient is aware they should contact our office by phone for worsening of their current condition or the appearance of new urologic symptoms. Compliance is encouraged with any medications and followup testing that is ordered. It is a privilege to participate in the urologic care of your patient. If you have any questions or concerns regarding treatment for the above conditions, or other urologic issues, please do not hesitate to contact me. The office telephone contact is [phone]. This note is constructed using voice recognition software. While every effort has been made to ensure accuracy tractor operator helper errors may have been included. Yours sincerely, Dr Thanh Caceres MD, [facility] - Urology Providers of Expert, Compassionate Care for the Genitourinary System Coding Level of Care Code Est Pt Level 3 (75969) Diagnoses Elevated PSA R97.20 Lower urinary tract symptoms due to benign prostatic hyperplasia N40.1
== END 2023-03-20 15:55 | disposition home or self-care (01) ==
PROVIDERS: Visit Provider Urology
DX: R97.20 Elevated prostate specific antigen [PSA] (principal); N40.1 Benign prostatic hyperplasia with lower urinary tract symptoms
CPT/HCPCS: 99213

== ENCOUNTER → 2023-03-20 14:50 | Outpatient (BNVA) | payer OTHER, SELFPAY | PROVIDERS: Visit Provider Urology | DX: R97.20 Elevated prostate specific antigen [PSA] (principal); N40.1 Benign prostatic hyperplasia with lower urinary tract symptoms; R33.8 Other retention of urine | CPT/HCPCS: 99212 ==

== ENCOUNTER 2023-07-02 08:50 | Outpatient (AMB) | payer OTHER, SELFPAY ==
--- NOTE | 2023-07-02 08:53 | A.OFFPC_ITS ---
Vital Signs 07/02/23 08:55 Height 5 ft 6 in Weight 152 lb 2 oz BMI 24.6 BP 144/84 H Blood Pressure Location Lt brachial Position Sitting Pulse 59 Pulse Source Pulse Oximeter Pulse Oximetry (%) 98 Intake Visit Reasons: PE Intake Note: pt is here for annual exam Sash Clamp Operator Required: No Accompanied by: Self / Same As Patient Allergies trazodone [TRAZODONE] Allergy (Severe, Verified 07/02/23 09:41) ANAPHYLAXIS advil PM Allergy (Unknown, Uncoded 07/02/23 09:41) stomach upset Medication List - Last Reconciled 07/02/23 by MARIOLA Bernal amlodipine 5 mg PO DAILY 90 days [biofreeze roll-On As directed] ferrous sulfate 325 mg PO DAILY finasteride 5 mg PO DAILY 90 days [Male Guard Pads As directed] zolpidem 5 mg PO BEDTIME 30 days Tobacco use date assessed: 07/02/23 Fall risk assessment: No Falls in past year Last assessed Fall Risk: 07/02/23 Dental Screening Dental Screen Date: 07/02/23 Did you have a dental visit in the last 12 months?: Yes Did you have a dental problem in the last 6 months where you did not have access to dental care?: No Was dental information given to patient?: Patient has dentist HPI PE HPI Details Pt is here for a PE. Will order labs. Due for colon screen, will order cologuard. PSA is up to date, sees urology. Hx of iron deficiency. Will check iron levels. Pt follows up with cardiology. Pt has short term memory loss reported by his son. Will order labs to assess further. Pt's blood pressure is elevated today. He reports not taking his amlodipine for a few days. Will continue current dose. Pt has been smoking up to a pack a day since age 15. Will refer for low-dose CT. Pt c/o lower back pain. He reports radicular symptoms down his BLE. Will order XR. Will send meloxicam. Pt's son is in the room and helps translate. [facility] Medical History (Updated 07/02/23 @ 09:27 by MARIOLA Bernal) PVD (peripheral vascular disease) Mitral regurgitation Aortic insufficiency Iron deficiency Anemia Surgical History H/O colonoscopy History of inguinal hernia repair Family History Father No problems noted. Mother No problems noted. Social History Alcohol intake: current Alcohol intake frequency: does not drink Patient Tobacco Use Status: Current everyday Tobacco user Tobacco use type: Cigarette Cigarettes Per Day: 7 e-Cigarette/Vaping Use: Never Used Second Hand Smoke Exposure: No Current occupational status: retired Cognitive needs: No Hearing needs: No Vision needs: Yes Questionnaire PHQ-9 Over the last 2 weeks, how often have you been bothered by any of the following problems? 1. Little interest or pleasure in doing things: nearly every day 2. Feeling down, depressed, or hopeless: several days 3. Trouble falling or staying asleep, or sleeping too much: nearly every day 4. Feeling tired or having little energy: more than half the days 5. Poor appetite or overeating: not at all 6. Feeling bad about yourself - or that you are a failure or have let yourself or your family down: several days 7. Trouble concentrating on things, such as reading the newspaper or watching television: nearly every day 8. Moving or speaking so slowly that other people could have noticed. Or the opposite - being so fidgety or restless that you have been moving around a lot more than usual: several days 9. Thoughts that you would be better off or of hurting yourself in some way: not at all Total score: 14 Depression Screening Interpretation: Positive (pt has a therapist) Depression Screening Follow-up: Existing condition Depression Screening Done: Yes 91750 - PHQ-9 Billing: Yes Source: Developed by Drs. Jett Hansen, Chelsie Torres, Bairon Chew and colleagues, with an educational luis eduardo from [employer]. Thrive Questionnaire Date Thrive assessed: 07/02/23 I am a: Patient What is your living situation today?: I have a steady place to live Within the past 12 months, did the food you bought not last and you didn't have the money to get more?: Never true Within the past 12 months, did you worry whether your food would run out before you got money to buy more?: Never true Do you have trouble paying for medicines?: No Do you have trouble getting transportation to medical appointments?: No Do you have trouble paying your heating and electricity bill?: No Do you have trouble taking care of your child, family member or friend?: No Do you have trouble with day-to-day activities such as bathing, preparing meals, shopping, managing finances, etc.?: No Are you currently unemployed and looking for a job?: No Are you interested in more education?: No Please select the resources that you would like help with: None Currently or been in a relationship where the following occur: no concerns repor radha THRIVE Score: 0 AUDIT C Alcohol Use Questionnaire (AUDIT-C) 1. How often do you have a drink containing alcohol?: Never 3. How often do you have six or more drinks on one occasion?: Never Total Score: 0 Score Reviewed/Action Taken: Yes RYLAND-7 AMB Questionnaire RYLAND-7 Date RYLAND - 7 assessed: 07/02/23 Feeling nervous, anxious, or on edge: 3 = Nearly every day Not being able to stop or control worryin = More than half the days Worrying too much about different things: 2 = More than half the days Trouble relaxin = Several days Being so restless that it is hard to sit still: 1 = Several days Becoming easily annoyed or irritable: 3 = Nearly every day Feeling afraid as if something awful might happen: 0 = Not at all Total RYLAND-7 score (0-4 normal; 5-9 mild; 10-14 moderate; 15-21 severe): 12 Source: Developed by Drs. Jett Hansen, Chelsie Torres, Bairon Chew and colleagues, with an educational luis eduardo from [employer]. RYLAND-7 Assessment Billing RYLAND-7 Assessment Tool: RYLAND-7 Assessment 41202 Review of Systems Const Denies chills and Denies fever(s) Eyes Denies blurry vision ENT Denies vertigo, Denies dizziness and Denies sore throat Card Denies chest pain at rest, Denies chest pain with activity, Denies diaphoresis, Denies dyspnea and Denies dyspnea on exertion Resp Denies cough, Denies dyspnea, Denies dyspnea on exertion and Denies wheezing GI Denies abdominal pain, Denies melena, Denies hematochezia, Denies constipation, Denies diarrhea and Denies loose stools Denies hematuria Musc Reports numbness and Reports tingling Skin/Breast Denies lesions Neuro Denies vertigo, Denies dizziness, Reports numbness and Reports tingling Psych Denies anxiety, Denies depression, Denies homicidal ideation, Denies suicidal ideation and Denies other (substance abuse) Aller/Immun Denies wheezing Physical exam (Primary Care) Vital Signs: Last Vital Signs Pulse 59 07/02/23 08:55 BP 144/84 H 07/02/23 08:55 Pulse Ox 98 07/02/23 08:55 BMI result Body Mass Index 24.6 Tobacco/Smoking Status: Tobacco use Status Tobacco use date assessed 07/02/23 07/02/23 09:01 Patient Tobacco Use Status Current everyday Tobacco 07/02/23 09:01 Tobacco use type Cigarette 07/02/23 09:01 e-Cigarette/Vaping Use Never Used 07/02/23 09:01 PHQ-9: PHQ-9 Score PHQ-9: Total score 14 07/02/23 09:16 Depression Screening Interpretation: Positive (pt has a therapist) Depression Screening Follow-up: Existing condition Thrive Assessment: Date of Thrive Assessment Date Thrive assessed 07/02/23 07/02/23 09:14 Currently or been in a relationship where the following occur: no concerns reported Const Other: skinny stature General: cooperative Nutritional Appearance: well nourished Orientation/consciousness: patient oriented x3 Limitations: ambulation with cane HENMT Head: Yes normal to inspection, Yes normocephalic and Yes atraumatic Ears: TM's normal bilaterally Eyes General: appearance normal, both eyes and all related structures Alignment and Position: alignment normal and position normal Neck Neck: Yes normal visual inspection and Yes no lymphadenopathy Thyroid: Thyroid normal Resp Other: lung fairly clear Effort & Inspection: normal respiratory effort Cardio Rate: regular rate Rhythm: regular rhythm Heart sounds: S1 normal heart sound present, S2 normal heart sound present and Murmur heart sound present systolic GI Palpation (GI): Soft to palpation and nontender Auscultation: normal bowel sounds Back/Spine/Pelvis Other: lower back pain exacerbated with radicular symptoms with BLE raises with sitting, slight raises of BLE, unable to heel and toe walk due to instability (using cane) Skin Rashes: no rashes Neuro General: patient oriented x3, moves all extremities, no focal motor deficits and deep tendon reflexes 2+ bilaterally Romberg Test: Negative Psych Appearance: grossly normal Mental Status: mental status grossly normal Speech and movement: Normal speech and movement present Affect: normal affect Attitude: cooperative Thought process: Normal thought process present Thought content: Normal thought content present Insight: Good insight present (Psych) Judgement: Good judgement present (Psych) Assessment and Plan Assessment & Plan (1) Physical exam: Code(s): Z00.00 - Encounter for general adult medical examination without abnormal findings Plan: Labs ordered (2) Iron deficiency: Code(s): E61.1 - Iron deficiency Plan: Labs ordered (3) Short-term memory loss: Code(s): R41.3 - Other amnesia Plan: Labs ordered (4) Smoker: Code(s): F17.200 - Nicotine dependence, unspecified, uncomplicated Plan: Referred for low-dose CT (5) Low back pain radiating to both legs: Code(s): M54.50 - Low back pain, unspecified; M79.604 - Pain in right leg; M79.605 - Pain in left leg Plan: XR ordered, meloxicam sent Plan The patient agreed to the use of a medical massage therapist for this encounter. Scribed for Nayan Choe FARROWING WORKER- by Cami Liu medical massage therapist, on 07/02/2023 at 09:15 EST. Orders: Orders Complete Blood Count Auto Diff Today Z00.00 - Encounter for general adult medical examination without abnormal findings Homocysteine Today R41.3 - Other amnesia Comprehensive [place]. Panel Fast Today Z00.00 - Encounter for general adult medical examination without abnormal findings TSH reflex Free T4 Today Z00.00 - Encounter for general adult medical examination without abnormal findings UA CC w/rflx Micro + Cult Today Z00.00 - Encounter for general adult medical examination without abnormal findings Lipid Panel Today Z00.00 - Encounter for general adult medical examination without abnormal findings IRON PROFILE Today E61.1 - Iron deficiency Ferritin Today E61.1 - Iron deficiency Vitamin B12 and Folate Today R41.3 - Other amnesia Methylmalonic Acid Today R41.3 - Other amnesia XR lumbar spine 2-3V Today M54.50 - Low back pain, unspecified, M79.604 - Pain in right leg, M79.605 - Pain in left leg Referrals Cologuard Test Z12.11 - Encounter for screening for malignant neoplasm of colon, Z12.12 - Encounter for screening for malignant neoplasm of rectum Thoracic Surgery Referral F17.200 - Nicotine dependence, unspecified, uncomplicated Medications: New meloxicam 7.5 mg PO DAILY 30 days PRN 30 tabs 0RF pain Changed From amlodipine 5 mg PO DAILY 90 days 90 tabs 0RF To amlodipine 10 mg PO DAILY 90 days 90 tabs 0RF From amlodipine 10 mg PO DAILY 90 days 90 tabs 0RF To amlodipine 5 mg PO DAILY 90 days 90 tabs 0RF Refilled ferrous sulfate 325 mg PO DAILY 90 tabs 0RF Coding Level of Care Code Est Pt Prev Care >65y(42678) Diagnoses Physical exam Z00.00 Iron deficiency E61.1 Short-term memory loss R41.3 Smoker F17.200 Low back pain radiating to both legs M54.50; M79.604; M79.605 Additional Codes RYLAND-7 Assessment Billing - RYLAND-7 Assessment Tool: RYLAND-7 Assessment [id number] ([id number])
[2023-07-02 08:55] VITALS: BP 144/84; PULSE 59; O2SAT 98; BMI 24.6
== END 2023-07-02 09:36 | disposition home or self-care (01) ==
PROVIDERS: PCP Nurse Practitioner Family; Visit Provider Nurse Practitioner Family
DX: Z00.00 Encounter for general adult medical examination without abnormal findings (principal); E61.1 Iron deficiency; R41.3 Other amnesia; F17.200 Nicotine dependence, unspecified, uncomplicated; M54.50 Low back pain, unspecified; M79.604 Pain in right leg; M79.605 Pain in left leg
CPT/HCPCS: 99397

== ENCOUNTER 2023-07-08 07:10 | Outpatient (REF) | payer OTHER, SELFPAY ==
--- NOTE | ~2023-07-08 | XR_ITS ---
EXAMINATION: XR LUMBOSACRAL SPINE CLINICAL INFORMATION: Low back pain. COMPARISON: 11/12/2017 TECHNIQUE: Three views of the lumbosacral spine. FINDINGS: Dextroscoliosis of the lumbar spine. Degenerative changes in the imaged lower thoracic spine. Degenerative changes in the bilateral sacroiliac joints. The bones are diffusely demineralized. Facet arthritis in the lower lumbar spine. Minimal grade 1 retrolisthesis of L3 on L4. Advanced multilevel lumbar spondylosis with loss of disc space height at L3-L4 and L4-L5. XR/XR lumbar spine 2-3V IMPRESSION: Advanced multilevel lumbar spondylosis with loss of disc space height at L3-L4 and L4-L5.
[2023-07-08 07:48] LABS: MANUAL DIFF FLAG NO
[2023-07-08 08:16] LABS: Basophils Absolute Auto 0.1 X10*3/uL (0.0-0.2); Basophils Percent Auto 0.8 % (0-2); Eosinophils Absolute Auto 0.2 X10*3/uL (0.0-0.4); Eosinophils Percent Auto 3.3 % (0-4); Hematocrit 40.1 % (42.0-52.0); Hemoglobin 13.5 g/dl (14.0-18.0); Imm Gran Abs Auto 0.02 X10*3/uL (0.00-0.03); Imm Gran Pct Auto 0.3 % (0.0-0.4); Lymphocytes Absolute Auto 1.7 X10*3/uL (1.2-4.9); Mean Corpuscular HGB Conc 33.7 g/dl (31.0-36.0); Mean Platelet Volume 10.6 fL (9.4-12.4); Monocytes Absolute Auto 0.4 X10*3/uL (0.1-1.2); Monocytes Percent Auto 6.6 % (2-11); Neutrophils Absolute Auto 4.2 x10*3/uL (2.0-8.3); Platelet Count 187 X10*3/uL (160-400); Red Blood Count 4.36 X10*6/uL (4.60-5.80); Red Cell Distribution Width 13.1 % (11.0-16.0); White Blood Count 6.6 X10*3/uL (4.8-10.8)
[2023-07-08 08:41] LABS: Appearance Urine Clear; Color Urine Yellow; Glucose Urine UA Negative (Negative); Leukocyte Esterase Urine Negative (Negative); Nitrite Urine Negative (Negative); Urine Blood Negative (Negative); Urine Ketones Negative (Negative); Urine Protein Negative (Neg-Trace)
[2023-07-08 09:27] LABS: Alanine Aminotransferase 24 U/L (0-40); Albumin Level 3.8 g/dL (3.5-5.0); Alkaline Phosphatase 57 U/L (39-117); Anion Gap 8 (12-20); Aspartate Amino Transferase 19 U/L (5-37); Bilirubin Total 0.7 mg/dL (0.0-1.0); Blood Urea Nitrogen 21 mg/dL (9-16); Calcium 8.9 mg/dL (8.4-10.2); Carbon Dioxide 28 mmol/L (22-29); Chloride 110 mmol/L (96-108); Cholesterol 164 mg/dL (<200); Estimated Glomerular Filt Rate > 60; Glucose Fasting 103 mg/dL (60-99); HDL Cholesterol 35 mg/dL (>40); Iron 80 mcg/dL (45-160); LDL Cholesterol Calculated 111 mg/dL (<100); Percent Iron Saturation 39 % (15-50); Potassium 3.9 mmol/L (3.3-5.1); Sodium 142 mmol/L (135-145); Total Iron Binding Capacity 204 mcg/dL (228-428); Total Protein 6.5 g/dL (6.5-8.0); Triglycerides 90 mg/dL (<150); Unsaturated Iron Binding 124 ug/dL
[2023-07-08 09:31] LABS: Ferritin 157 ng/mL (20-250); TSH reflex Free T4 1.09 uIU/mL (0.32-4.0)
[2023-07-08 12:12] LABS: Folate 7.7 ng/mL (> or = 4.0); Vitamin B12 718 pg/mL (200-900)
[2023-07-09 17:58] LABS: Homocysteine 8.7 umol/L (<11.4)
[2023-07-12 15:08] LABS: Methylmalonic Acid 99 nmol/L (87-318)
== END 2023-07-08 07:11 | disposition home or self-care (01) ==
LOC: HO.XRAY 07:10
PROVIDERS: PCP Nurse Practitioner Family; Visit Provider Nurse Practitioner Family
DX: Z00.00 Encounter for general adult medical examination without abnormal findings (principal); M54.50 Low back pain, unspecified; M79.604 Pain in right leg; M79.605 Pain in left leg; R41.3 Other amnesia; E61.1 Iron deficiency
CPT/HCPCS: 36415; 72100; 80053; 80061; 81003; 82607; 82728; 82746; 83090; 83540; 83921; 84443; 85025

== ENCOUNTER 2023-09-16 07:22 | Outpatient (REF) | payer OTHER, SELFPAY ==
[2023-09-16 08:44] LABS: Prostate Specific Antigen 3.21 ng/mL (<0.05-4.0)
== END 2023-09-16 07:23 | disposition home or self-care (01) ==
LOC: HO.LAB 07:22
PROVIDERS: PCP Nurse Practitioner Family; Visit Provider Urology
DX: R97.20 Elevated prostate specific antigen [PSA] (principal); Z12.5 Encounter for screening for malignant neoplasm of prostate
CPT/HCPCS: 36415; 84153

== ENCOUNTER 2023-09-22 13:19 | Outpatient (AMB) | payer OTHER, SELFPAY ==
--- NOTE | 2023-09-22 13:23 | MHC.OFFVIS ---
Intake Visit Reasons: 6M PSA(set) Intake Note: Patient is Present for Telephone Follow Up PSA Urology Med: Finasteride Antibiotic Allergy: None Blood Thinner: None Founder And President Required: No Allergies trazodone [TRAZODONE] Allergy (Severe, Verified 09/22/23 13:27) ANAPHYLAXIS advil PM Allergy (Unknown, Uncoded 09/22/23 13:27) stomach upset HPI Comments Details: Mr Turner is a very pleasant Iranian speaking male. They are a patient of Dr. Nova. They are seen in the office today for the following urologic conditions. - BPH - incomplete bladder emptying - elevated PSA Iranian translation provided in office by qualified director medical surgical PSA continues to fall to 3.2 Twelve month follow-up Continue finasteride Lower Urinary Tract Symptoms: Current visit is for interval assessment of BPH symptoms Current treatment includes - no medication Prior therapy - alpha rachel, 5-AR, anti-muscarinic. Prostate Symptom Score Moderate (9-19), Bother 2 09/22 , Mild (0-8), Bother 2. Symptoms include frequency, urgency, weak stream, nocturia (>2), , and are improving. Prior Prostate Score moderate. PSA 03/22 4.1, 08/21 4.3, 09/22 4.4, 09/23 4.4, 09/24 PSA 5.3, 07/26 4.0 15%, 01/25 4.4 , 08/26 5.5 13%, 09/27 3.2 Prostate volume 30-50gm. Testing at next visit will include restart finasteride, repeat PSA in 12 months [facility] Medical History PVD (peripheral vascular disease) Mitral regurgitation Aortic insufficiency Iron deficiency Anemia Surgical History H/O colonoscopy History of inguinal hernia repair Family History Father No problems noted. Mother No problems noted. Social History Alcohol intake: current Alcohol intake frequency: does not drink Patient Tobacco Use Status: Current everyday Tobacco user Tobacco use type: Cigarette Cigarettes Per Day: 7 e-Cigarette/Vaping Use: Never Used Second Hand Smoke Exposure: No Current occupational status: retired Cognitive needs: No Hearing needs: No Vision needs: Yes Review of Systems Const All systems reviewed & are unremarkable except as noted in HPI and below Reports no additional complaints Resp Reports no additional complaints GI Reports no additional complaints Reports as per HPI Musc Reports no additional complaints Physical Exam Telemedicine evaluation Appropriate responses Regular breathing rate and rhythm HEENT Head: Yes normal to inspection Ears: hearing grossly normal bilaterally Eyes General: appearance normal, both eyes and all related structures Neck Neck: Yes normal visual inspection Chest Chest palpation & inspection: normal inspection of the chest Resp Effort & Inspection: normal respiratory effort and able to speak in complete sentences Telehealth Telehealth Telehealth Platform: [employer] Location of provider rendering services: practice address Location of patient: address on file Patient Identification confirmed using: Name, : Yes Telehealth method: video Patient verbally consented to treatment: Yes Patient verbally consented to billing insurance company: Yes Patient informed of any privacy concerns related to visit: Yes Minutes spent on Phone/Video with Pt.: 15 Assessment & Plan Assessment & Plan (1) Lower urinary tract symptoms due to benign prostatic hyperplasia: Code(s): N40.1 - Benign prostatic hyperplasia with lower urinary tract symptoms Category: Medical (2) Elevated PSA: Code(s): R97.20 - Elevated prostate specific antigen [PSA] Category: Medical Plan 12 month follow-up PSA Orders: Orders Prostate Specific Antigen 364 Days N40.1 - Benign prostatic hyperplasia with lower urinary tract symptoms Medications: Refilled finasteride 5 mg PO DAILY 90 days 90 tabs 3RF N13.8 - Other obstructive and reflux uropathy, N40.1 - Benign prostatic hyperplasia with lower urinary tract symptoms Patient Instructions: Imaging studies, laboratory and physical exam results were discussed and reviewed in detail. No major barriers to patient understanding were identified. An opportunity to ask questions regarding the treatment plan was provided. All questions were answered. The patient expressed understanding and agreement with the above treatment plan. The patient is aware they should contact our office by phone for worsening of their current condition or the appearance of new urologic symptoms. Compliance is encouraged with any medications and followup testing that is ordered. It is a privilege to participate in the urologic care of your patient. If you have any questions or concerns regarding treatment for the above conditions, or other urologic issues, please do not hesitate to contact me. The office telephone contact is [phone]. This note is constructed using voice recognition software. While every effort has been made to ensure accuracy crime scene evidence technician errors may have been included. Yours sincerely, Dr Thanh Caceres MD, [facility] - Urology Providers of Expert, Compassionate Care for the Genitourinary System Coding Level of Care Code Tele Est Pt Level 3 (50473) Diagnoses Lower urinary tract symptoms due to benign prostatic hyperplasia N40.1 Elevated PSA R97.20
== END 2023-09-22 15:24 | disposition home or self-care (01) ==
LOC: HO.HUSH 13:19
PROVIDERS: PCP Nurse Practitioner Family; Visit Provider Urology
DX: N40.1 Benign prostatic hyperplasia with lower urinary tract symptoms (principal); R97.20 Elevated prostate specific antigen [PSA]
CPT/HCPCS: 99213

== ENCOUNTER → 2023-09-22 13:19 | Outpatient (BNVA) | payer OTHER, SELFPAY | PROVIDERS: PCP Nurse Practitioner Family; Visit Provider Urology ==

== ENCOUNTER 2023-11-20 09:41 | Outpatient (AMB) | payer OTHER, SELFPAY ==
--- NOTE | 2023-11-20 07:45 | A.OFFVIS_ITS ---
Intake Visit Reasons: LDCT Allergies trazodone [TRAZODONE] Allergy (Severe, Verified 09/22/23 13:27) ANAPHYLAXIS advil PM Allergy (Unknown, Uncoded 09/22/23 13:27) stomach upset HPI HPI LDCT: Details: Initial visit for this 78yo smoker with a 30PYH. Patient has been smoking since age 18 for 60 years at 1/2ppd. . Denies marijuana use. Denies second hand smoke exposure. Denies exposure to chemicals or substances like asbestos. . Denies known family history of lung cancer. Denies personal history of cancers. Denies chest CT in last year. . Denies recent travel outside the [place]. Denies recent respiratory illness or recent hospitalization for respiratory issues. Denies testing positive for COVID. Admits receiving COVID Vaccine. . Denies fever, chills, new/worsening cough, hemoptysis, hoarseness or dysphagia. Denies significant chest pain, significant dyspnea or unintentional weight loss. Patient Lung Cancer Screening Questionnaire reviewed with patient by provider. . Shared Decision Making Completed. Patient meets criteria. Discussed in detail with patient, the risk vs benefit of LDCT screening. Patient consents to proceed with scan. Discussed smoking cessation. [facility] Medical History (Updated 11/20/23 @ 09:49 by Deena Prabhakar PA-C) HTN (hypertension) Aortic insufficiency Mitral regurgitation Iron deficiency PVD (peripheral vascular disease) Hx of lower gastrointestinal bleeding Nicotine dependence, cigarettes, uncomplicated Lower urinary tract symptoms due to benign prostatic hyperplasia Surgical History (Updated 10/29/23 @ 14:08 by Deena Prabhakar PA-C) History of esophagogastroduodenoscopy (EGD) History of colonoscopy History of inguinal hernia repair Family History Father No problems noted. Mother No problems noted. Social History (Updated 11/20/23 @ 09:49 by Deena Prabhakar PA-C) Alcohol intake: current Alcohol intake frequency: does not drink Patient Tobacco Use Status: Current everyday Tobacco user Tobacco use type: Cigarette Cigarettes Per Day: 10 Years Smoked: onset 18yo, 1/2ppd x 60yrs, 30pyh e-Cigarette/Vaping Use: Never Used Second Hand Smoke Exposure: No Current occupational status: retired Cognitive needs: No Hearing needs: No Vision needs: Yes Assessment & Plan Assessment & Plan (1) Nicotine dependence, cigarettes, uncomplicated: Comment: (current smoker - onset 18yo, 1/2ppd x 60yrs, 30pyh) Code(s): F17.210 - Nicotine dependence, cigarettes, uncomplicated Category: Medical Plan: - SDM visit completed today in office. - Patient meets criteria for LDCT for lung cancer screening purposes and is asymptomatic. - Smoking cessation counseling offered. Patients can always call [phone]. - Will arrange for a LDCT scan of the chest for screening purposes at [facility]. - Risks, benefits, and alternatives were discussed in detail and the patient agrees to proceed. - Risks discussed include but are not limited to: radiation exposure, anxiety during testing and while awaiting results, false negatives, false positives and possibility of additional intervention such as further imaging or surgical procedures for benign disease. - Benefits are obviously detection of lung cancer at an early stage which can lead to improved outcomes. - Discussed the importance of screening program compliance with adherence to yearly LDCT scan as scheduled - or sooner interval scans for personalized screening regimen. - Discussed follow up plan. Our office will send a letter discussing results and if needed set up phone call and office visit based on CT findings. - Patient educated on results categorization and the management decisions for suspicious findings potentially found on the screening LDCT scan. Any patient with a Lung RADS score of 3 or 4 will be reviewed by a multidisciplinary team at [facility] to form a plan of action in regards to scan findings. - If further work up is warranted for a suspicious lung finding this will be followed by the Lung Cancer Screening program in conjunction with the Thoracic Surgery Department at [facility]. - A copy of the office note and LDCT will be sent to the patient's PCP - as well as documentation on any associated further plans of care. - Incidental findings on LDCT are the PCP's responsibility. These findings are indicated with an S finding on the LDCT Assessment. A note discussing the findings will be sent to the PCP who is then responsible for further management. - All questions answered.? Orders: Orders CT lung screening 10/29/23 F17.210 - Nicotine dependence, cigarettes, uncomplicated Coding Level of Care Code Lung Cancer Screening G0296 Diagnoses Nicotine dependence, cigarettes, uncomplicated F17.210
== END 2023-11-20 10:11 | disposition home or self-care (01) ==
PROVIDERS: PCP Nurse Practitioner Family; Referring Provider Nurse Practitioner Family; Visit Provider Physician Assistant Medical
DX: F17.210 Nicotine dependence, cigarettes, uncomplicated (principal)
CPT/HCPCS: G0296

== ENCOUNTER 2023-11-20 09:50 | Outpatient (REF) | payer OTHER, SELFPAY ==
--- NOTE | ~2023-11-20 | CT_ITS ---
EXAMINATION: CT LOW-DOSE SCREENING CHEST WITHOUT CONTRAST CLINICAL INFORMATION: Nicotine dependence, cigarettes, uncomplicated. The patient is a current smoker with a 63 pack-year history of smoking. COMPARISON: X-ray chest August 15, 2021. CTA chest September 03, 2018. TECHNIQUE: Multidetector volumetric CT imaging of the chest is performed on a Siemens SOMATOM Definition scanner without contrast using low dose technique. Additional 2D coronal and sagittal reformatted images and axial 3D maximum intensity projection (MIP) images are generated on the CT workstation. This CT examination was performed using dose optimization techniques as appropriate, variously including the following: *Automated exposure control. *Adjustment of mA and/or kV according to patient size (this includes techniques or standardized protocols for targeted exams where dose is matched to indication/reason for exam; i.e. extremities or head). *Use of iterative reconstruction technique. TOTAL EXAM DLP: 53 mGy-cm. CTDIvol: 2.48 mGy. FINDINGS: PULMONARY NODULES: No suspicious pulmonary nodules. LUNGS: Lungs bilaterally symmetrically expanded. There is mild emphysema and bronchial thickening without bronchiectasis. No effusion or pneumothorax. Central airways patent. MEDIASTINUM: No mediastinal, hilar or axillary adenopathy or free fluid collection. CORONARY ARTERY CALCIFICATION: None visualized on this study. THYROID GLAND: Unremarkable to the extent seen. CARDIOVASCULAR STRUCTURES: Aortic and heart size normal. No pericardial effusion. CHEST WALL/AXILLA: Unremarkable. UPPER ABDOMEN: Included portions of the solid organs in the upper abdomen unremarkable on noncontrast imaging. OSSEOUS STRUCTURES: No suspicious focal findings. CT/CT lung screening IMPRESSION: No suspicious pulmonary nodules. ASSESSMENT: 1. Lung-RADS Category 1: Negative. There are no nodules or there are definitely benign nodules. N/A. 2. Lung-RADS Category S: Negative. There are no clinically significant or potentially clinically significant findings not related to the lungs requiring urgent additional evaluation. RECOMMENDATION: Continued routine annual low-dose CT lung screening in 1 year is recommended. An order for CT CHEST LOW DOSE CANCER SCREENING ([id number]) can be placed. Electronically signed by: Awais García MD 12/22/2023 11:09 PM EDT
== END 2023-11-20 09:51 | disposition home or self-care (01) ==
LOC: HO.CT 09:50
PROVIDERS: Visit Provider Physician Assistant Medical
DX: Z12.2 Encounter for screening for malignant neoplasm of respiratory organs (principal); F17.210 Nicotine dependence, cigarettes, uncomplicated
CPT/HCPCS: 71271; G0296

== ENCOUNTER 2023-12-28 08:14 | Outpatient (AMB) | payer OTHER, SELFPAY ==
[2023-12-28 08:31] VITALS: BP 152/86; PULSE 67; O2SAT 96; BMI 24.2
--- NOTE | 2023-12-28 08:31 | A.OFFPC_ITS ---
Vital Signs 12/28/23 08:31 12/28/23 09:16 Height 5 ft 6 in Weight 150 lb BMI 24.2 BP 152/86 H 148/80 H Blood Pressure Location Rt brachial Rt brachial Position Sitting Sitting Pulse 67 Pulse Source Pulse Oximeter Pulse Oximetry (%) 96 Intake Visit Reasons: 6 mon f/u Intake Note: pt is here for 6 month follow up [employer] Required: No Accompanied by: Self / Same As Patient Allergies trazodone [TRAZODONE] Allergy (Severe, Verified 12/28/23 09:42) ANAPHYLAXIS advil PM Allergy (Unknown, Uncoded 12/28/23 09:42) stomach upset Medication List - Last Reconciled 12/28/23 by Nayan Choe, [employer]- amlodipine 5 mg PO DAILY 90 days [biofreeze roll-On As directed] ferrous sulfate 325 mg PO DAILY finasteride 5 mg PO DAILY 90 days [Male Guard Pads As directed] meloxicam 15 mg PO DAILY PRN 30 days zolpidem 5 mg PO BEDTIME 30 days Tobacco use date assessed: 07/02/23 Fall risk assessment: No Falls in past year Last assessed Fall Risk: 12/28/23 Dental Screening Dental Screen Date: 07/02/23 HPI 6 mon f/u HPI Details Pt c/o lower back pain. He does report radicular symptoms down his lower extremities. He had an XR in July 2023 which showed advanced multilevel lumbar spondylosis with loss of disc space height at L3-L4 and L4-L5. Will refer to PT. Pt is currently taking meloxicam 7.5mg Will increase this to 15mg. Denies any signs of cauda equina. Pt sees cardiology. Pt's blood pressure is elevated today. He reports not taking his medication yet today. Will have pt monitor his blood pressure at home and record readings. Denies chest pain, shortness of breath, headache, dizziness, and blurred vision. [facility] Medical History (Updated 11/20/23 @ 09:49 by Deena Prabhakar PA-C) HTN (hypertension) Aortic insufficiency Mitral regurgitation Iron deficiency PVD (peripheral vascular disease) Hx of lower gastrointestinal bleeding Nicotine dependence, cigarettes, uncomplicated Lower urinary tract symptoms due to benign prostatic hyperplasia Surgical History History of esophagogastroduodenoscopy (EGD) History of colonoscopy History of inguinal hernia repair Family History Father No problems noted. Mother No problems noted. Social History Alcohol intake: current Alcohol intake frequency: does not drink Patient Tobacco Use Status: Current everyday Tobacco user Tobacco use type: Cigarette Cigarettes Per Day: 10 Years Smoked: onset 18yo, 1/2ppd x 60yrs, 30pyh e-Cigarette/Vaping Use: Never Used Second Hand Smoke Exposure: No Current occupational status: retired Cognitive needs: No Hearing needs: No Vision needs: Yes Questionnaire PHQ-9 Over the last 2 weeks, how often have you been bothered by any of the following problems? 1. Little interest or pleasure in doing things: several days 2. Feeling down, depressed, or hopeless: several days 3. Trouble falling or staying asleep, or sleeping too much: nearly every day 4. Feeling tired or having little energy: nearly every day 5. Poor appetite or overeating: nearly every day 6. Feeling bad about yourself - or that you are a failure or have let yourself or your family down: several days 7. Trouble concentrating on things, such as reading the newspaper or watching television: several days 8. Moving or speaking so slowly that other people could have noticed. Or the opposite - being so fidgety or restless that you have been moving around a lot more than usual: several days 9. Thoughts that you would be better off or of hurting yourself in some way: not at all Total score: 14 Depression Screening Interpretation: Positive Depression Screening Done: Yes 54414 - PHQ-9 Billing: Yes Source: Developed by Drs. Jett Hansen, Chelsie Torres, Bairon Chew and colleagues, with an educational luis eduardo from [employer]. Thrive Questionnaire Date Thrive assessed: 12/28/23 I am a: Patient What is your living situation today?: I have a steady place to live Within the past 12 months, did the food you bought not last and you didn't have the money to get more?: Sometimes True Within the past 12 months, did you worry whether your food would run out before you got money to buy more?: Sometimes True Do you have trouble paying for medicines?: No Do you have trouble getting transportation to medical appointments?: No Do you have trouble paying your heating and electricity bill?: No Do you have trouble taking care of your child, family member or friend?: No Do you have trouble with day-to-day activities such as bathing, preparing meals, shopping, managing finances, etc.?: Yes Are you currently unemployed and looking for a job?: No Are you interested in more education?: Yes Please select the resources that you would like help with: Utilities Currently or been in a relationship where the following occur: No concerns reported THRIVE Score: 2 AUDIT C Alcohol Use Questionnaire (AUDIT-C) 1. How often do you have a drink containing alcohol?: Never 2. How many drinks containing alcohol do you have on a typical day when you are drinking?: 1 or 2 3. How often do you have six or more drinks on one occasion?: Never Total Score: 0 Score Reviewed/Action Taken: Yes RYLAND-7 AMB Questionnaire RYLAND-7 Date RYLAND - 7 assessed: 12/28/23 Feeling nervous, anxious, or on edge: 1 = Several days Not being able to stop or control worryin = Several days Worrying too much about different things: 1 = Several days Trouble relaxin = Nearly every day Being so restless that it is hard to sit still: 0 = Not at all Becoming easily annoyed or irritable: 1 = Several days Feeling afraid as if something awful might happen: 1 = Several days Total RYLAND-7 score (0-4 normal; 5-9 mild; 10-14 moderate; 15-21 severe): 8 Source: Developed by Drs. Jett Hansen, Chelsie Torres, Bairon Chew and colleagues, with an educational luis eduardo from [employer]. RYLAND-7 Assessment Billing RYLAND-7 Assessment Tool: RYLAND-7 Assessment 13460 Review of Systems Const Reports as per HPI Physical exam (Primary Care) Vital Signs: Last Vital Signs Pulse 67 12/28/23 08:31 BP 152/86 H 12/28/23 08:31 Pulse Ox 96 12/28/23 08:31 BMI result Body Mass Index 24.2 Tobacco/Smoking Status: Tobacco use Status Tobacco use date assessed 07/02/23 12/28/23 08:36 Patient Tobacco Use Status Current everyday Tobacco 12/28/23 08:36 Tobacco use type Cigarette 12/28/23 08:36 e-Cigarette/Vaping Use Never Used 12/28/23 08:36 PHQ-9: PHQ-9 Score PHQ-9: Total score 14 12/28/23 09:06 Depression Screening Interpretation: Positive Thrive Assessment: Date of Thrive Assessment Date Thrive assessed 12/28/23 12/28/23 08:36 Currently or been in a relationship where the following occur: No concerns reported Const Other: uses a cane (4-point) General: cooperative Orientation/consciousness: patient oriented x3 Resp Effort & Inspection: normal respiratory effort Auscultation: diminished lung sounds (though moving air) Cardio Rate: regular rate Rhythm: regular rhythm Heart sounds: S1 normal heart sound present, S2 normal heart sound present and Murmur heart sound present systolic Back/Spine/Pelvis Other: lower back discomfort with heel and toe walking and bilat knee to chest raises, no radicular symptoms Neuro General: patient oriented x3 Cranial nerves: Yes CN's II-XII intact bilaterally Extrem Other: +1 patellar reflexes bilat Right lower extremity: no edema Left lower extremity: no edema Psych Appearance: grossly normal Mental Status: mental status grossly normal Speech and movement: Normal speech and movement present Affect: normal affect Attitude: cooperative Thought process: Normal thought process present Thought content: Normal thought content present Insight: Good insight present (Psych) Judgement: Good judgement present (Psych) Assessment and Plan Assessment & Plan (1) Low back pain radiating to both legs: Code(s): M54.50 - Low back pain, unspecified; M79.604 - Pain in right leg; M79.605 - Pain in left leg Plan: Referred to PT, increasing meloxicam (2) Low back pain radiating to both legs: Code(s): M54.50 - Low back pain, unspecified; M79.604 - Pain in right leg; M79.605 - Pain in left leg Plan: Referred to PT, meloxicam increased (3) HTN (hypertension): Comment: encouraged taking meds for HTN, and to write down values so we can go over them together, in the near future Code(s): I10 - Essential (primary) hypertension Plan: Encouraged pt to monitor his BP at home and drop off readings Plan The patient agreed to the use of a medical associate for this encounter. Scribed for MARKO Seymour- by Cami Liu medical associate, on 12/28/2023 at 09:05 EST. Orders: Orders Comprehensive [place]. Panel Fast Today I10 - Essential (primary) hypertension, M54.50 - Low back pain, unspecified, M79.604 - Pain in right leg, M79.605 - Pain in left leg TSH reflex Free T4 Today I10 - Essential (primary) hypertension, M54.50 - Low back pain, unspecified, M79.604 - Pain in right leg, M79.605 - Pain in left leg UA CC w/rflx Micro + Cult Today I10 - Essential (primary) hypertension, M54.50 - Low back pain, unspecified, M79.604 - Pain in right leg, M79.605 - Pain in left leg Lipid Panel Today I10 - Essential (primary) hypertension, M54.50 - Low back pain, unspecified, M79.604 - Pain in right leg, M79.605 - Pain in left leg PT Evaluation and Treatment Today M54.50 - Low back pain, unspecified, M79.604 - Pain in right leg, M79.605 - Pain in left leg Complete Blood Count Auto Diff Today I10 - Essential (primary) hypertension, M54.50 - Low back pain, unspecified, M79.604 - Pain in right leg, M79.605 - Pain in left leg Medications: Changed From meloxicam 7.5 mg PO DAILY PRN 30 tabs 0RF pain 30 days To meloxicam 15 mg PO DAILY PRN 30 tabs 0RF pain 30 days Refilled amlodipine 5 mg PO DAILY 90 tabs 0RF 90 days Coding Level of Care Code Est Pt Level 3 (69988) Diagnoses Low back pain radiating to both legs M54.50; M79.604; M79.605 HTN (hypertension) I10 Additional Codes RYLAND-7 Assessment Billing - RYLAND-7 Assessment Tool: RYLAND-7 Assessment 71955 ([id number])
[2023-12-28 09:16] VITALS: BP 148/80
== END 2023-12-28 09:43 | disposition home or self-care (01) ==
PROVIDERS: PCP Nurse Practitioner Family; Visit Provider Nurse Practitioner Family
DX: M54.50 Low back pain, unspecified (principal); M79.604 Pain in right leg; M79.605 Pain in left leg; I10 Essential (primary) hypertension

== ENCOUNTER → 2023-12-28 08:14 | Outpatient (BNVA) | payer OTHER, SELFPAY | PROVIDERS: PCP Nurse Practitioner Family; Visit Provider Nurse Practitioner Family | DX: M54.50 Low back pain, unspecified (principal); M79.604 Pain in right leg; M79.605 Pain in left leg; I10 Essential (primary) hypertension | CPT/HCPCS: 96127; 99212 ==

== ENCOUNTER 2024-08-04 10:27 | Outpatient (AMB) | payer OTHER, SELFPAY ==
[2024-08-04 10:30] VITALS: BP 142/84; PULSE 76; O2SAT 98; BMI 24.7
--- NOTE | 2024-08-04 10:30 | A.OFFPC_ITS ---
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 Name: ismael Information Interpreted: non-clinical & clinical Accompanied by: Son Allergies trazodone [TRAZODONE] Allergy (Severe, Verified 08/04/24 10:30) ANAPHYLAXIS advil PM Allergy (Unknown, Uncoded 12/28/23 09:42) stomach upset Medication List - Last Reconciled 08/04/24 by BABAR Bernal amlodipine 5 mg PO DAILY 90 days [biofreeze roll-On As directed] ferrous sulfate 325 mg PO DAILY finasteride 5 mg PO DAILY 90 days [Male Guard Pads As directed] meloxicam 15 mg PO DAILY PRN 30 days zolpidem 5 mg PO BEDTIME 30 days Tobacco use date assessed: 08/04/24 Fall risk assessment: No Falls in past year Last assessed Fall Risk: 08/04/24 Dental Screening Dental Screen Date: 08/04/24 Did you have a dental visit in the last 12 months?: Yes Did you have a dental problem in the last 6 months where you did not have access to dental care?: No Was dental information given to patient?: Patient has dentist HPI PE HPI Details History of Present Illness The patient is a 79-year-old male presenting for an annual physical examination. Accompanied by his son who provides interpretation assistance, the patient denies any current health concerns, including fever, chills, and gastrointestinal or urinary symptoms. Preventive health maintenance is observed as satisfactory, with the Cologuard test up to date. Patient is noted to be maintaining a satisfactory state of health without the need for a cane. Health Maintenance - Cologuard screening is up to date. -sees urology for PSAs -sees cardiology Social History - Present with his son, who assists with language interpretation. - Does not use a cane for mobility. Review of Systems - Constitutional: Denies fevers, chills. - Gastrointestinal: Denies blood on stoo l, constipation, diarrhea. - Genitourinary: Denies urinary issues. - Psychiatric: Denies suicidal ideation, denies homicidal ideation. Physical Exam General: Cooperative, healthy appearing, comfortable, no acute distress and well developed, skinny stature Orientation: Patient oriented x3 Limitations: No limitations Head: Normal to inspection Ears: Hearing grossly normal bilaterally Nose: Normal external nose present Face and sinus: Normal facial exam Eyes: Appearance normal, both eyes and all related structures Neck: Normal visual inspection and Yes full ROM Respiratory: Normal respiratory effort and able to speak in complete sentences. Fairly clear to auscultation bilaterally Cardiovascular: Regular rate and rhythm. Normal S1 and S2 GI: Normal to inspection. Soft to palpation and nontender Skin: No rashes or lesions noted Neuro: Patient oriented x3 Extremities: Normal to inspection Results Plan During this routine wellness examination, I evaluated the patient?s health status, noting his lack of concerning symptoms and maintaining of preventive sc reenings such as Cologuard. No immediate interventions are necessary, though regular health monitoring and continued preventive care adherence are advised. Observing for any health changes remains important. Discussion Notes During the visit, I discussed the patient?s health maintenance status, confirming his Cologuard test is up to date. I reviewed the absence of any current symptoms or health concerns, explaining that consistent health monitoring is mijares, especially in light of his reported satisfactory health and the absence of mobility aid usage. I emphasized the importance of continuing regular check-ups to monitor any potential new symptoms or changes in health status. Patient Instructions - Continue with regular preventive check -ups. - Report any new symptoms or changes in health status. - Maintain current healthy lifestyle and preventive screenings. [facility] Medical History HTN (hypertension) Aortic insufficiency Mitral regurgitation Iron deficiency PVD (peripheral vascular disease) Hx of lower gastrointestinal bleeding Nicotine dependence, cigarettes, uncomplicated Lower urinary tract symptoms due to benign prostatic hyperplasia Surgical History History of esophagogastroduodenoscopy (EGD) History of colonoscopy History of inguinal hernia repair Family History Father No problems noted. Mother No problems noted. Social History Alcohol intake: current Alcohol intake frequency: does not drink Patient Tobacco Use Status: Current everyday Tobacco user Tobacco use type: Cigarette Cigarettes Per Day: 10 Years Smoked: onset 18yo, 1/2ppd x 60yrs, 30pyh e-Cigarette/Vaping Use: Never Used Second Hand Smoke Exposure: No Current occupational status: retired Cognitive needs: No Hearing needs: No Vision needs: Yes Questionnaire PHQ-9 Over the last 2 weeks, how often have you been bothered by any of the following problems? 1. Little interest or pleasure in doing things: several days 2. Feeling down, depressed, or hopeless: several days 3. Trouble falling or staying asleep, or sleeping too much: more than half the days 4. Feeling tired or having little energy: several days 5. Poor appetite or overeating: several days 6. Feeling bad about yourself - or that you are a failure or have let yourself or your family down: several days 7. Trouble concentrating on things, such as reading the newspaper or watching television: several days 8. Moving or speaking so slowly that other people could have noticed. Or the opp osite - being so fidgety or restless that you have been moving around a lot more than usual: not at all 9. Thoughts that you would be better off or of hurting yourself in some way: not at all Total score: 8 Depression Screening Interpretation: Positive Depression Screening Follow-up: Existing condition and Declines treatment Depression Screening Done: Yes 80793 - PHQ-9 Billing: Yes Source: Developed by Drs. Jett Hansen, Chelsie Torres, Bairon Chew and colleagues, with an educational luis eduardo from [employer]. Thrive Questionnaire Date Thrive assessed: 08/04/24 I am a: Patient What is your living situation today?: I have a steady place to live Within the past 12 months, did the food you bought not last and you didn't have the money to get more?: Never true Within the past 12 months, did you worry whether your food would run out before you got money to buy more?: Never true Do you have trouble paying for medicines?: No Do you have trouble getting transportation to medical appointments?: No Do you have trouble paying your heating and electricity bill?: No Do you have trouble taking care of your child, family member or friend?: No Do you have trouble with day-to-day activities such as bathing, preparing meals, shopping, managing finances, etc.?: Yes Are you currently unemployed and looking for a job?: Yes Are you interested in more education?: I choose not to answer this question Please select the resources that you would like help with: Daily support Currently or been in a relationship where the following occur: I choose not to answer THRIVE Score: 0 AUDIT C Alcohol Use Questionnaire (AUDIT-C) 1. How often do you have a drink containing alcohol?: Monthly or less 2. How many drinks containing alcohol do you have on a typical day when you are drinking?: 1 or 2 3. How often do you have six or more drinks on one occasion?: Never Total Score: 1 Score Reviewed/Action Taken: Yes RYLAND-7 AMB Questionnaire RYLAND-7 Date RYLAND - 7 assessed: 08/04/24 Feeling nervous, anxious, or on edge: 1 = Several days Not being able to stop or control worryin = Several days Worrying too much about different things: 1 = Several days Trouble relaxin = Nearly every day Being so restless that it is hard to sit still: 0 = Not at all Becoming easily annoyed or irritable: 1 = Several days Feeling afraid as if something awful might happen: 1 = Several days Total RYLAND-7 score (0-4 normal; 5-9 mild; 10-14 moderate; 15-21 severe): 8 Source: Developed by Drs. Jett aHnsen, Chelsie Torres, Bairon Chew and colleagues, with an educational luis eduardo from [employer]. RYLAND-7 Assessment Billing RYLAND-7 Assessment Tool: RYLAND-7 Assessment 02562 Physical exam (Primary Care) Vital Signs: Last Vital Signs Pulse 76 08/04/24 10:30 BP 142/84 H 08/04/24 10:30 Pulse Ox 98 08/04/24 10:30 Oxygen Delivery Method Room Air 08/04/24 10:30 BMI result Body Mass Index 24.7 Tobacco/Smoking Status: Tobacco use Status Tobacco use date assessed 08/04/24 08/04/24 10:32 Patient Tobacco Use Status Current everyday Tobacco 08/04/24 10:32 Tobacco use type Cigarette 05/01/25 10:32 e-Cigarette/Vaping Use Never Used 08/04/24 10:32 PHQ-9: PHQ-9 Score PHQ-9: Total score 8 08/04/24 10:59 Depression Screening Interpretation: Positive Depression Screening Follow-up: Existing condition and Declines treatment Thrive Assessment: Date of Thrive Assessment Date Thrive assessed 08/04/24 08/04/24 10:32 Currently or been in a relationship where the following occur: I choose not to answer Coding Level of Care Code Est Pt Prev Care >65y(55626) Diagnoses Physical exam Z00.00 Additional Codes RYLAND-7 Assessment Billing - RYLAND-7 Assessment Tool: RYLAND-7 Assessment 08806 ([id number]) PHQ-9 - 74425 - PHQ-9 Billing: Yes ([id number]) Assessment & Plan Assessment & Plan (1) Physical exam: Code(s): Z00.00 - Encounter for general adult medical examination without abnormal findings Category: Medical Plan . Medications: Refilled ferrous sulfate 325 mg PO DAILY 90 tabs 0RF
[2024-08-04 11:00] VITALS: BP 138/86
--- OUTSIDE RECORDS SUMMARY | 2024-08-04 11:56 | XMS_ITS | Clinical Summary ---
Author Organization [employer] Address [address] [place] [address] Care Team Providers Care Compliance Director Name Role Phone Unavailable Primary Care Provider Unavailabl e Encounters Date Type Department Care Team Description 07/08/2024 Telephone [facility] [address] [place] [address] Garrett Hdez MD new patient visit from Last 3 Months Social History Tobacco Use Types Packs/Day Years Used Date Smoking Tobacco: Never Assessed Sex and Gender Information Value Date Recorded Sex Assigned at Male 12/19/2022 12:02 PM EDT Legal Sex Male 11:59 AM EDT Gender Identity Male 12/19/2022 12:02 PM EDT Sexual Orientation Straight 12/19/2022 12 :02 PM EDT Plan of Treatment Health Maintenance Due Date Last Done Comments Depression Screening 1945 Lipid Panel 1945 SDOH Screening 1945 Alcohol/Substance Use Screening 1959 Tobacco Screening 1959 Hepatitis C Screening 1965 DTaP/Tdap/Td Vaccines (1 - Tdap) 1966 Zoster Vaccines (1 of 2) 1997 Pneumococcal Vaccine: 50+ Ye ars (2 of 2 - PCV) 03/30/2020 03/30/2019 RSV Patients and Pa tients Aged 60 years or older (1 - 1-dose 75+ series) 2022 COVID-19 Vaccine ( - 2023-2 5 season) 2023 Influenza Vaccine (#1) 2023 02/11/2017 HIB Vaccines Aged Out No longer eligi ble based on patient's age to complete this topic HPV Vaccines Aged Out No longer eligi ble based on patient's age to complete this topic Hepatitis A Vaccines Aged Out No long er eligible based on patient's age to complete this topic Hepatitis B Vaccines Aged Out No long er eligible based on patient's age to complete this topic IPV Vaccines Aged Out No longer eligi ble based on patient's age to complete this topic Meningococcal Vaccine Aged Out No radha helene eligible based on patient's age to complete this topic RSV under 20 months Aged Out No longe r eligible based on patient's age to complete this topic Rotavirus Vaccines Aged Out No longer eligible based on patient's age to complete this topic Insurance [facility] DETENTION OPTIONS (O D-SNP)
== END 2024-08-04 11:45 | disposition home or self-care (01) ==
LOC: HO.HMCC 10:28
PROVIDERS: PCP Nurse Practitioner Family; Visit Provider Nurse Practitioner Family
DX: Z00.00 Encounter for general adult medical examination without abnormal findings (principal)

== ENCOUNTER → 2024-08-04 10:27 | Outpatient (BNVA) | payer OTHER, SELFPAY | PROVIDERS: PCP Nurse Practitioner Family; Visit Provider Nurse Practitioner Family | DX: Z00.00 Encounter for general adult medical examination without abnormal findings (principal); F17.210 Nicotine dependence, cigarettes, uncomplicated | CPT/HCPCS: 96127; 99397 ==

== ENCOUNTER 2024-08-25 07:31 | Outpatient (REF) | payer OTHER, SELFPAY ==
[2024-08-25 10:16] LABS: MANUAL DIFF FLAG NO
[2024-08-25 10:27] LABS: Basophils Absolute Auto 0.1 X10*3/uL (0.0-0.2); Basophils Percent Auto 0.7 % (0-2); Eosinophils Absolute Auto 0.3 X10*3/uL (0.0-0.4); Eosinophils Percent Auto 3.7 % (0-4); Hematocrit 41.2 % (42.0-52.0); Hemoglobin 13.6 g/dl (14.0-18.0); Imm Gran Abs Auto 0.02 X10*3/uL (0.00-0.03); Imm Gran Pct Auto 0.3 % (0.0-0.4); Lymphocytes Absolute Auto 2.1 X10*3/uL (1.2-4.9); Lymphocytes Percent Auto 27.7 % (20-40); Mean Corpuscular Hemoglobin 30.2 pg (27.0-33.0); Mean Corpuscular Volume 91.4 fL (80.0-98.0); Mean Platelet Volume 10.5 fL (9.4-12.4); Monocytes Absolute Auto 0.5 X10*3/uL (0.1-1.2); Monocytes Percent Auto 6.9 % (2-11); Neutrophils Absolute Auto 4.6 x10*3/uL (2.0-8.3); Neutrophils Percent Auto 60.7 % (45-73); Platelet Count 207 X10*3/uL (160-400); Red Blood Count 4.51 X10*6/uL (4.60-5.80); Red Cell Distribution Width 12.9 % (11.0-16.0); White Blood Count 7.6 X10*3/uL (4.8-10.8)
[2024-08-25 11:01] LABS: Appearance Urine Clear; Color Urine Yellow; Glucose Urine UA Negative (Negative); Leukocyte Esterase Urine Negative (Negative); Nitrite Urine Negative (Negative); Urine Blood Negative (Negative); Urine Ketones Negative (Negative); Urine Protein Negative (Neg-Trace)
[2024-08-25 11:54] LABS: Alanine Aminotransferase 41 U/L (0-40); Albumin Level 3.7 g/dL (3.5-5.0); Alkaline Phosphatase 72 U/L (39-117); Anion Gap 10 (12-20); Aspartate Amino Transferase 34 U/L (5-37); Bilirubin Total 0.6 mg/dL (0.0-1.0); Blood Urea Nitrogen 18 mg/dL (9-16); Calcium 8.9 mg/dL (8.4-10.2); Carbon Dioxide 27 mmol/L (22-29); Chloride 111 mmol/L (96-108); Cholesterol 160 mg/dL (<200); Estimated Glomerular Filt Rate > 60; Glucose Fasting 95 mg/dL (60-99); HDL Cholesterol 32 mg/dL (>40); LDL Cholesterol Calculated 110 mg/dL (<100); Potassium 3.7 mmol/L (3.3-5.1); Sodium 144 mmol/L (135-145); Total Protein 6.5 g/dL (6.5-8.0); Triglycerides 90 mg/dL (<150)
[2024-08-25 12:29] LABS: Prostate Specific Antigen 5.37 ng/mL (<0.05-4.0)
== END 2024-08-25 07:32 | disposition home or self-care (01) ==
LOC: HO.HMGCLDS 07:31
PROVIDERS: Urology; PCP Nurse Practitioner Family; Visit Provider Nurse Practitioner Family
DX: M54.50 Low back pain, unspecified (principal); N40.1 Benign prostatic hyperplasia with lower urinary tract symptoms; M79.604 Pain in right leg; M79.605 Pain in left leg; I10 Essential (primary) hypertension; Z12.5 Encounter for screening for malignant neoplasm of prostate
CPT/HCPCS: 36415; 80053; 80061; 81003; 84153; 84443; 85025

== ENCOUNTER 2024-09-12 07:27 | Outpatient (REF) | payer OTHER, SELFPAY ==
[2024-09-12 08:40] LABS: Cholesterol 177 mg/dL (<200); HDL Cholesterol 34 mg/dL (>40); LDL Cholesterol Calculated 122 mg/dL (<100); Triglycerides 106 mg/dL (<150)
== END 2024-09-12 07:28 | disposition home or self-care (01) ==
LOC: HO.LAB 07:27
PROVIDERS: PCP Nurse Practitioner Family; Visit Provider Internal Medicine Cardiovascular Disease
DX: Z13.6 Encounter for screening for cardiovascular disorders (principal); I73.9 Peripheral vascular disease, unspecified
CPT/HCPCS: 36415; 80061

== ENCOUNTER 2024-09-22 08:43 | Outpatient (AMB) | payer OTHER, SELFPAY ==
--- NOTE | 2024-09-22 08:45 | A.OFFVIS_ITS ---
Intake Visit Reasons: i yr follow up/ PSA Intake Note: Patient is Present for 1Y Follow Up PSA Urology Med: Finasteride Antibiotic Allergy: None Blood Thinner: None Health Education Assistant Required: No Allergies trazodone (TRAZODONE) Allergy (Severe, Verified 09/22/24 08:46) ANAPHYLAXIS advil PM Allergy (Unknown, Uncoded 09/22/24 08:46) stomach upset HPI Comments Details: Mr Turner is a very pleasant Setswana speaking male. They are a patient of Dr. Nova. They are seen in the office today for the following urologic conditions. - BPH - incomplete bladder emptying - elevated PSA Setswana translation provided in office by qualified special forces medical sergeant Yearly office visit PSA has elevated 5.4 Discussed potential prostate biopsy Refill finasteride Repeat PSA 4 month Lower Urinary Tract Symptoms: Current visit is for interval assessment of BPH symptoms Current treatment includes - no medication Prior therapy - alpha rachel, 5-AR, anti-muscarinic. Prostate Symptom Score Moderate (9-19), Bother 2 09/22 , Mild (0-8), Bother 2. Symptoms include frequency, urgency, weak stream, nocturia (>2), , and are improving. Prior Prostate Score moderate. PSA 03/22 4.1, 08/21 4.3, 09/22 4.4, 09/23 4.4, 09/24 PSA 5.3, 07/26 4.0 15%, 01/25 4.4 , 08/26 5.5 13%, 09/27 3.2, 08/28 5.4 Prostate volume 30-50gm. [facility] Medical History HTN (hypertension) Aortic insufficiency Mitral regurgitation Iron deficiency PVD (peripheral vascular disease) Hx of lower gastrointestinal bleeding Nicotine dependence, cigarettes, uncomplicated Lower urinary tract symptoms due to benign prostatic hyperplasia Surgical History History of esophagogastroduodenoscopy (EGD) History of colonoscopy History of inguinal hernia repair Family History Father No problems noted. Mother No problems noted. Social History Alcohol intake: current Alcohol intake frequency: does not drink Patient Tobacco Use Status: Current everyday Tobacco user Tobacco use type: Cigarette Cigarettes Per Day: 10 Years Smoked: onset 18yo, 1/2ppd x 60yrs, 30pyh e-Cigarette/Vaping Use: Never Used Second Hand Smoke Exposure: No Current occupational status: retired Cognitive needs: No Hearing needs: No Vision needs: Yes Review of Systems Const Denies chills and Denies fever(s) Card Reports no additional complaints and Denies syncope Resp Denies cough GI Denies abdominal pain and Denies heartburn Reports as per HPI and Denies change in libido Neuro Denies syncope Psych Denies change in libido Endo Denies change in libido Physical Exam Const General: cooperative, healthy appearing, comfortable and no acute distress Orientation/consciousness: patient oriented x3 HEENT Face and sinus: Yes normal facial exam Mouth: moist mucous membranes Neck Neck: Yes normal visual inspection, Yes full ROM and Yes trachea midline Chest Chest palpation & inspection: normal inspection of the chest Resp Effort & Inspection: normal respiratory effort, able to speak in complete sentences and no respiratory distress GI Inspection: Yes normal to inspection Back/Spine/Pelvis Cervical Spine: normal cervical lordosis Thoracic/Lumbar Spine: thoracic and lumbar spine normal to inspection Skin General skin exam: no rashes or lesions noted Neuro General: patient oriented x3, gait normal, tone normal and moves all extremities Extrem General: Yes normal to inspection and Yes capillary refill normal Assessment & Plan Assessment & Plan (1) Lower urinary tract symptoms due to benign prostatic hyperplasia: Code(s): N40.1 - Benign prostatic hyperplasia with lower urinary tract symptoms Category: Medical (2) Elevated PSA: Code(s): R97.20 - Elevated prostate specific antigen [PSA] Category: Medical Plan Four month follow-up PSA Orders: Orders PSA,Total (Free>4and<10) 4 Months R97.20 - Elevated prostate specific antigen [PSA] Medications: Refilled finasteride 5 mg PO DAILY 90 tabs 1RF 90 days N40.1 - Benign prostatic hyperplasia with lower urinary tract symptoms Discontinued finasteride Discontinued Reason: Duplicate 5 mg PO DAILY 90 days 90 tabs 3RF N13.8 - Other obstructive and reflux uropathy, N40.1 - Benign prostatic hyperplasia with lower urinary tract symptoms Patient Instructions: This note is constructed using voice recognition software. While every effort has been made to ensure accuracy clinic scheduler errors may have been included. Imaging studies, laboratory and physical exam results were discussed and reviewed in detail. No major barriers to patient understanding were identified. An opportunity to ask questions regarding the treatment plan was provided. All questions were answered. The patient expressed understanding and agreement with the above treatment plan. The patient is aware they should contact our office by phone for worsening of their current condition or the appearance of new urologic symptoms. Compliance is encouraged with any medications and followup testing that is ordered. It is a privilege to participate in the urologic care of your patient. If you have any questions or concerns regarding treatment for the above conditions, or other urologic issues, please do not hesitate to contact me. The office telephone contact is [phone]. Sincerely, Dr Thanh Caceres MD, [facility] - Urology Compassionate Specialist Care for the Genitourinary System Coding Level of Care Code Est Pt Level 4 (70234) Complex EM visit Add On G2211 Diagnoses Lower urinary tract symptoms due to benign prostatic hyperplasia N40.1 Elevated PSA R97.20
--- OUTSIDE RECORDS SUMMARY | 2024-09-22 09:06 | XMS_ITS | Clinical Summary ---
Author Organization [employer] Address [address] [place] [address] Care Team Providers Care Structural Test Engineer Name Role Phone Unavailable Primary Care Provider Unavailabl e Encounters Date Type Department Care Team Description 09/05/2024 Orders Only [facility] Information Management [address] [place], [place] [id number] Provider, Not In System 07/08/2024 Telephone [facility] [address] [place] [address] Garrett Hdez MD new patient visit from [...] - 2023-2 5 season) 2023 Influenza Vaccine (Season Ended) 2024 02/12/20 17 HIB Vaccines Aged Out No longer eligi [...] patient's age to complete this topic Meningococcal B Vaccine Aged Out No l onger eligible based on patient's age to complete this topic Meningococcal Vaccine Aged Out No radha helene eligible based on patient's age to complete this topic RSV under 20 months Aged Out No longe r eligible based on patient's age to complete this topic Rotavirus Vaccines Aged Out No longer eligible based on patient's age to complete this topic Procedures Procedure Name Priority Date/Time Associated Diagnosis Comments VASC US CAROTID ARTERY DUPLEX BILATERAL Routine 08/04/2024 9:13 AM EDT from Last 3 Months Results * [facility] US Carotid Artery Duplex Bilateral (08/04/2024 9:13 AM EDT) us Not In System Provider CV VASCULAR PROCEDURES Fi nal Result from Last 3 Months Insurance [facility] CUSTODIAL OPTIONS (O D-SNP)
== END 2024-09-22 09:07 | disposition home or self-care (01) ==
LOC: HO.HUSH 08:43
PROVIDERS: PCP Nurse Practitioner Family; Visit Provider Urology
DX: N40.1 Benign prostatic hyperplasia with lower urinary tract symptoms (principal); R97.20 Elevated prostate specific antigen [PSA]
CPT/HCPCS: 99214; G2211

== ENCOUNTER → 2024-09-22 08:43 | Outpatient (BNVA) | payer OTHER, SELFPAY | PROVIDERS: PCP Nurse Practitioner Family; Visit Provider Urology | DX: N40.1 Benign prostatic hyperplasia with lower urinary tract symptoms (principal); N13.8 Other obstructive and reflux uropathy; R33.8 Other retention of urine; R97.20 Elevated prostate specific antigen [PSA] | CPT/HCPCS: 99212 ==

== ENCOUNTER 2025-01-12 07:59 | Outpatient (REF) | payer OTHER, SELFPAY ==
[2025-01-12 09:22] LABS: PSA,Total (Free>4and<10) 5.46 ng/mL (0.00-4.00)
[2025-01-13 13:48] LABS: Free Prostate Spec Ag 0.8 ng/mL; Percent Free Prostate Spec Ag 17 % (calc) (>25)
== END 2025-01-12 08:00 | disposition home or self-care (01) ==
LOC: HO.LAB 07:59
PROVIDERS: PCP Nurse Practitioner Family; Visit Provider Urology
DX: R97.20 Elevated prostate specific antigen [PSA] (principal); Z12.5 Encounter for screening for malignant neoplasm of prostate
CPT/HCPCS: 36415; 84153; 84154

== ENCOUNTER 2025-01-24 10:10 | Outpatient (AMB) | payer OTHER, SELFPAY ==
--- NOTE | 2025-01-24 10:10 | A.OFFVIS_ITS ---
Intake Visit Reasons: 4m/PSA Intake Note: Patient is Present for: 4mo follow up Urology Med: Finasteride Blood Thinner: None labs done 01/12/25: TPSA 5.46 In Store Demonstrator Required: Yes Accompanied by: Self / Same As Patient Allergies trazodone (TRAZODONE) Allergy (Severe, Verified 01/24/25 10:12) ANAPHYLAXIS advil PM Allergy (Unknown, Uncoded 01/24/25 10:12) stomach upset HPI Comments Details: Mr Turner is a very pleasant Maltese speaking male. They are a patient of Dr. Nova. They are seen in the office today for the following urologic conditions. - BPH - incomplete bladder emptying - elevated PSA Maltese translation provided in office by qualified pediatrician/medical doctor Had elevated PSA at last visit - 5.4 Discussed potential prostate biopsy Repeat PSA - 01/28 4.8 17% on finasteride Six-month follow-up repeat labs with bladder ultrasound Lower Urinary Tract Symptoms: Current visit is for interval assessment of BPH symptoms Current treatment includes - no medication Prior therapy - alpha rachel, 5-AR, anti-muscarinic. Prostate Symptom Score Moderate (9-19), Bother 2 09/22 , Mild (0-8), Bother 2. Symptoms include frequency, urgency, weak stream, nocturia (>2), , and are improving. Prior Prostate Score moderate. PSA 03/22 4.1, 08/21 4.3, 09/22 4.4, 09/23 4.4, 09/24 PSA 5.3, 07/26 4.0 15%, 01/25 4.4 , 08/26 5.5 13%, 09/27 3.2, 08/28 5.4 Prostate volume 30-50gm. [facility] Medical History HTN (hypertension) Aortic insufficiency Mitral regurgitation Iron deficiency PVD (peripheral vascular disease) Hx of lower gastrointestinal bleeding Nicotine dependence, cigarettes, uncomplicated Lower urinary tract symptoms due to benign prostatic hyperplasia Surgical History History of esophagogastroduodenoscopy (EGD) History of colonoscopy History of inguinal hernia repair Family History Father No problems noted. Mother No problems noted. Social History Alcohol intake: current Alcohol intake frequency: does not drink Patient Tobacco Use Status: Current everyday Tobacco user Tobacco use type: Cigarette Cigarettes Per Day: 10 Years Smoked: onset 18yo, 1/2ppd x 60yrs, 30pyh e-Cigarette/Vaping Use: Never Used Second Hand Smoke Exposure: No Current occupational status: retired Cognitive needs: No Hearing needs: No Vision needs: Yes Review of Systems Const All systems reviewed & are unremarkable except as noted in HPI and below Reports no additional complaints Resp Reports no additional complaints GI Reports no additional complaints Reports as per HPI Musc Reports no additional complaints Physical Exam Telemedicine evaluation Appropriate responses Regular breathing rate and rhythm HEENT Head: Yes normal to inspection Ears: hearing grossly normal bilaterally Eyes General: appearance normal, both eyes and all related structures Neck Neck: Yes normal visual inspection Chest Chest palpation & inspection: normal inspection of the chest Resp Effort & Inspection: normal respiratory effort and able to speak in complete sentences Telehealth Telehealth Telehealth Platform: YOHO Location of provider rendering services: practice address Location of patient: address on file Patient Identification confirmed using: Name, : Yes Telehealth method: video Patient verbally consented to treatment: Yes Patient verbally consented to billing insurance company: Yes Patient informed of any privacy concerns related to visit: Yes Assessment & Plan Assessment & Plan (1) Lower urinary tract symptoms due to benign prostatic hyperplasia: Code(s): N40.1 - Benign prostatic hyperplasia with lower urinary tract symptoms Category: Medical (2) Elevated PSA: Code(s): R97.20 - Elevated prostate specific antigen [PSA] Category: Medical Plan Six-month follow-up lab work office PVR Orders: Orders PSA,Total (Free>4and<10) 6 Months R97.20 - Elevated prostate specific antigen [PSA] US bladder 6 Months R97.20 - Elevated prostate specific antigen [PSA] Medications: Refilled finasteride 5 mg PO DAILY 90 days 90 tabs 1RF N40.1 - Benign prostatic hyperplasia with lower urinary tract symptoms finasteride 5 mg PO DAILY 90 tabs 1RF 90 days N40.1 - Benign prostatic hyperplasia with lower urinary tract symptoms Patient Instructions: This note is constructed using voice recognition software. While every effort has been made to ensure accuracy full stack java developer errors may have been included. Imaging studies, laboratory and physical exam results were discussed and reviewed in detail. No major barriers to patient understanding were identified. An opportunity to ask questions regarding the treatment plan was provided. All questions were answered. The patient expressed understanding and agreement with the above treatment plan. The patient is aware they should contact our office by phone for worsening of their current condition or the appearance of new urologic symptoms. Compliance is encouraged with any medications and followup testing that is ordered. It is a privilege to participate in the urologic care of your patient. If you have any questions or concerns regarding treatment for the above conditions, or other urologic issues, please do not hesitate to contact me. The office telephone contact is [phone]. Sincerely, Dr Thanh Caceres MD, [facility] - Urology Compassionate Specialist Care for the Genitourinary System Coding Level of Care Code Tele Est Pt Level 3 (16650) Complex EM visit Add On G2211 Diagnoses Lower urinary tract symptoms due to benign prostatic hyperplasia N40.1 Elevated PSA R97.20
--- OUTSIDE RECORDS SUMMARY | 2025-01-24 11:56 | XMS_ITS | Encounter Summary ---
Author Organization [employer] Address [address] [place] [address] Care Team Providers Care Header Boss Name Role Phone Unavailable Primary Care Provider Unavailabl e Encounter Details Date Type Department Care Team (Late st Contact Info) Description 09/05/2024 Orders Only [facility] Information Management [address] [place] [address] Provider, Not In System Social History Tobacco Use Types Packs/Day Years Used Date Smoking Tobacco: Never Assessed Sex and Gender Information Value Date Recorded Sex Assigned at Male 12/19/2022 12:02 PM EDT Legal Sex Male 11:59 AM EDT Gender Identity Male 12/19/2022 12:02 PM EDT Sexual Orientation Straight 12/19/2022 12 :02 PM EDT documented as of this encounter Plan of Treatment Not on file documented as of this encounter Procedures Procedure Name Priority Date/Time Associated Diagnosis Comments VASC US CAROTID ARTERY DUPLEX BILATERAL Routine 08/04/2024 9:13 AM EDT documented in this encounter Results * VASC US Carotid Artery Duplex Bilateral (08/04/2024 9:13 AM EDT) us Not In System Provider CV VASCULAR PROCEDURES Fi nal Result documented in this encounter Visit Diagnoses Not on filedocumented in this encounter
--- OUTSIDE RECORDS SUMMARY | 2025-01-24 11:56 | XMS_ITS | Clinical Summary ---
Author Organization [facility] Address [address] [address] [place] [address] Care Team Providers Care Acoustical Carpenter Name Role Phone Unavailable Primary Care Provider Unavailabl e Social History Tobacco Use Types Packs/Day Years [...] 1965 DTaP/Tdap/Td Vaccines (1 - Tdap) 1966 RSV Patients and Patients Aged 60 years or older (1 - 1-dose 75+ series) 2022 Zoster Vaccines (2 of 2) 11/13/2023 09/18/2023 COVID-19 Vaccine (1 - 2023-2 5 season) 2024 Influenza Vaccine (#1) 2024 02/11/2017 Pneumococcal Vaccine: 50+ Years Completed 09/18/2023, 03/30/2019 HIB Vaccines Aged Out No longer eligi [...] patient's age to complete this topic Insurance [facility] LONGTERM OPTIONS (O D-SNP) JUAN R PEPE [id number]
== END 2025-01-24 13:00 | disposition home or self-care (01) ==
LOC: HO.HUSH 10:10
PROVIDERS: PCP Nurse Practitioner Family; Visit Provider Urology
DX: N40.1 Benign prostatic hyperplasia with lower urinary tract symptoms (principal); R97.20 Elevated prostate specific antigen [PSA]
CPT/HCPCS: 99213; G2211

== ENCOUNTER 2025-02-06 11:10 | Outpatient (AMB) | payer OTHER, SELFPAY ==
[2025-02-06 11:14] VITALS: BP 164/94; PULSE 72; RESP 14; O2SAT 98; BMI 25.2
--- NOTE | 2025-02-06 11:14 | MHC.PC.OV ---
Vital Signs 02/06/25 11:14 Height 5 ft 6 in Weight 156 lb BMI 25.2 BP 164/94 H Blood Pressure Location Rt brachial Position Sitting Respiration 14 Pulse 72 Pulse Source Pulse Oximeter Pulse Oximetry (%) 98 Oxygen Delivery Method Room Air Comment Pt is out of BP meds have not been taking for sometime. Intake Visit Reasons: 6m follow up Senior Shipping Clerk Required: No Accompanied by: Self / Same As Patient Allergies trazodone (TRAZODONE) Allergy (Severe, Verified 02/06/25 11:25) ANAPHYLAXIS advil PM Allergy (Unknown, Uncoded 02/06/25 11:25) stomach upset Medication List - Last Reconciled 02/06/25 by MARKO Bernal- amlodipine 5 mg PO DAILY 90 days [biofreeze roll-On As directed] ferrous sulfate 325 mg PO DAILY finasteride 5 mg PO DAILY 90 days [Male Guard Pads As directed] meloxicam 15 mg PO DAILY PRN 30 days propranolol ER 60 mg PO BEDTIME 30 days zolpidem 5 mg PO BEDTIME 30 days Tobacco use date assessed: 02/06/25 Fall risk assessment: No Falls in past year Last assessed Fall Risk: 02/06/25 Dental Screening Dental Screen Date: 02/06/25 Did you have a dental visit in the last 12 months?: No Did you have a dental problem in the last 6 months where you did not have access to dental care?: No Was dental information given to patient?: Patient has dentist HPI 6m follow up HPI Details Chief Complaint The patient presents for management of hypertension and intermittent headaches. History of Present Illness The patient is a 79-year-old male presenting for management of hypertension. He reports elevated blood pressure, has been non-adherent with his medications for some time, and experiences intermittent headaches. The patient denies chest pain, shortness of breath, increased shortness of breath, and dizziness. Social History Health Maintenance Review of Systems - Neurological: Reports intermittent headaches. Denies dizziness. - Cardiovascular: Denies chest pain. - Respiratory: Denies shortness of breath or increased shortness of breath. Physical Exam General: Cooperative, healthy appearing, comfortable, no acute distress and well developed Orientation: Patient oriented x3 Limitations: No limitations Head: Normal to inspection Ears: Hearing grossly normal bilaterally Nose: Normal external nose present Face and sinus: Normal facial exam Eyes: Appearance normal, both eyes and all related structures Neck: Normal visual inspection and Yes full ROM Respiratory: Diminished though clear, able to speak in complete sentences. Clear to auscultation bilaterally Cardiovascular: Regular rate and rhythm. Faint systolic murmur noted. Normal S1 and S2. No carotid bruits noted GI: Normal to inspection. Soft to palpation and nontender Skin: No rashes or lesions noted Neuro: Patient oriented x3 Extremities: Normal to inspection, no edema noted Results Plan 1. Hypertension The patient's blood pressure is elevated, and he has been non-adherent with his medications. Due to high readings even at home, a beta-rachel, propranolol ER, will be added to his regimen. An EKG will be performed today, and labs will be ordered for the near future. 2. Headache The patient reports intermittent headaches. The addition of propranolol ER may also help with his headaches. Discussion Notes I discussed with the patient that his blood pressure is elevated, likely because he has not been taking his medications. I explained that I am adding propranolol ER, a beta-rachel, which should help lower his blood pressure and may also alleviate his intermittent headaches. I informed him that we will perform an EKG today and that he will need to get lab work done in the near future. Patient Instructions - Start taking the newly prescribed medication, propranolol ER, as directed. - Get an EKG performed today in the office. - Please go to the laboratory to have blood tests done in the near future. - Continue to monitor your blood pressure at home (drop off values in the near future_ -echo ordered [facility] Medical History (Updated 02/06/25 @ 11:48 by Nayan Choe, [facility]) HTN (hypertension) Aortic insufficiency Mitral regurgitation Iron deficiency PVD (peripheral vascular disease) Hx of lower gastrointestinal bleeding Nicotine dependence, cigarettes, uncomplicated Lower urinary tract symptoms due to benign prostatic hyperplasia Surgical History History of esophagogastroduodenoscopy (EGD) History of colonoscopy History of inguinal hernia repair Family History Father No problems noted. Mother No problems noted. Social History Alcohol intake: current Alcohol intake frequency: does not drink Patient Tobacco Use Status: Current everyday Tobacco user Tobacco use type: Cigarette Cigarettes Per Day: 10 Years Smoked: onset 18yo, 1/2ppd x 60yrs, 30pyh Packs per year/per ci.00 e-Cigarette/Vaping Use: Never Used Second Hand Smoke Exposure: No Current occupational status: retired Cognitive needs: No Hearing needs: No Vision needs: Yes Questionnaire PHQ-9 Over the last 2 weeks, how often have you been bothered by any of the following problems? 1. Little interest or pleasure in doing things: not at all 2. Feeling down, depressed, or hopeless: not at all 3. Trouble falling or staying asleep, or sleeping too much: more than half the days 4. Feeling tired or having little energy: several days 5. Poor appetite or overeating: several days 6. Feeling bad about yourself - or that you are a failure or have let yourself or your family down: several days 7. Trouble concentrating on things, such as reading the newspaper or watching television: several days 8. Moving or speaking so slowly that other people could have noticed. Or the opposite - being so fidgety or restless that you have been moving around a lot more than usual: not at all 9. Thoughts that you would be better off or of hurting yourself in some way: not at all Total score: 6 Depression Screening Interpretation: Positive Depression Screening Follow-up: Existing condition and Declines treatment Depression Screening Done: Yes 07899 - PHQ-9 Billing: Yes Source: Developed by Drs. Jett Hansen, Chelsie Torres, Bairon Chew and colleagues, with an educational luis eduardo from [employer]. Thrive Questionnaire Date Thrive assessed: 06/20/24 I am a: Patient What is your living situation today?: I have a steady place to live Within the past 12 months, did the food you bought not last and you didn't have the money to get more?: Never true Within the past 12 months, did you worry whether your food would run out before you got money to buy more?: Never true Do you have trouble paying for medicines?: No Do you have trouble getting transportation to medical appointments?: No Do you have trouble paying your heating and electricity bill?: No Do you have trouble taking care of your child, family member or friend?: No Do you have trouble with day-to-day activities such as bathing, preparing meals, shopping, managing finances, etc.?: Yes Are you currently unemployed and looking for a job?: Yes Are you interested in more education?: I choose not to answer this question Please select the resources that you would like help with: Daily support Currently or been in a relationship where the following occur: I choose not to answer THRIVE Score: 0 RYLAND-7 AMB Questionnaire RYLAND-7 Date RYLAND - 7 assessed: 02/06/25 Feeling nervous, anxious, or on edge: 1 = Several days Not being able to stop or control worryin = Several days Worrying too much about different things: 1 = Several days Trouble relaxin = Nearly every day Being so restless that it is hard to sit still: 0 = Not at all Becoming easily annoyed or irritable: 1 = Several days Feeling afraid as if something awful might happen: 1 = Several days Total RYLAND-7 score (0-4 normal; 5-9 mild; 10-14 moderate; 15-21 severe): 8 Source: Developed by Drs. Jett Hansen, Chelsie Torres, Bairon Chew and colleagues, with an educational luis eduardo from [employer]. RYLAND-7 Assessment Billing RYLAND-7 Assessment Tool: RYLAND-7 Assessment 74341 Physical exam (Primary Care) Vital Signs: Last Vital Signs Pulse 72 02/06/25 11:14 Resp 14 02/06/25 11:14 BP 164/94 H 02/06/25 11:14 Pulse Ox 98 02/06/25 11:14 Oxygen Delivery Method Room Air 02/06/25 11:14 BMI result Body Mass Index 25.2 Tobacco/Smoking Status: Tobacco use Status Tobacco use date assessed 02/06/25 02/06/25 11:28 Patient Tobacco Use Status Current everyday Tobacco 02/06/25 11:28 Tobacco use type Cigarette 02/06/25 11:28 e-Cigarette/Vaping Use Never Used 02/06/25 11:28 PHQ-9: PHQ-9 Score PHQ-9: Total score 6 02/06/25 11:48 Depression Screening Interpretation: Positive Depression Screening Follow-up: Existing condition and Declines treatment Thrive Assessment: Date of Thrive Assessment Date Thrive assessed 06/20/24 02/06/25 11:28 Currently or been in a relationship where the following occur: I choose not to answer Coding Level of Care Code Est Pt Level 3 (63232) Diagnoses HTN (hypertension) I10 Systolic murmur R01.1 Additional Codes RYLAND-7 Assessment Billing - RYLAND-7 Assessment Tool: RYLAND-7 Assessment 31289 ([id number]) PHQ-9 - 85227 - PHQ-9 Billing: Yes ([id number]) Assessment & Plan Assessment & Plan (1) HTN (hypertension): Code(s): I10 - Essential (primary) hypertension Category: Medical (2) Systolic murmur: Code(s): R01.1 - Cardiac murmur, unspecified Category: Medical Plan . Orders: Orders Complete Blood Count Auto Diff Today I10 - Essential (primary) hypertension, R01.1 - Cardiac murmur, unspecified UA CC w/rflx Micro + Cult Today I10 - Essential (primary) hypertension, R01.1 - Cardiac murmur, unspecified Lipid Panel Today I10 - Essential (primary) hypertension, R01.1 - Cardiac murmur, unspecified CA echo transthoracic complete Today I10 - Essential (primary) hypertension, R01.1 - Cardiac murmur, unspecified Comprehensive [place]. Panel Fast Today I10 - Essential (primary) hypertension, R01.1 - Cardiac murmur, unspecified TSH reflex Free T4 Today I10 - Essential (primary) hypertension, R01.1 - Cardiac murmur, unspecified Medications: New propranolol ER 60 mg PO BEDTIME 30 caps 2RF 30 days Refilled meloxicam 15 mg PO DAILY PRN 30 tabs 3RF pain 30 days finasteride 5 mg PO DAILY 90 tabs 1RF 90 days N40.1 - Benign prostatic hyperplasia with lower urinary tract symptoms ferrous sulfate 325 mg PO DAILY 90 tabs 0RF amlodipine 5 mg PO DAILY 90 tabs 0RF 90 days zolpidem 5 mg PO BEDTIME 30 tabs 1RF 30 days
--- OUTSIDE RECORDS SUMMARY | 2025-02-06 14:09 | XMS_ITS | Clinical Summary ---
Author Organization [employer] [facility] Address [address] [facility] [address] [place] [address] Care Team Providers Care Automobile And Property Underwriter Name Role Phone Unavailable Primary Care Provider [...] patient's age to complete this topic Insurance [facility] AL[facility] OPTIONS (O D-SNP) JUAN R PEPE [id number]
--- OUTSIDE RECORDS SUMMARY | 2025-02-06 14:09 | XMS_ITS | Encounter Summary ---
Author Organization [employer] Address [address] [place] [address] Care Team Providers Care Oxygen Plant Operator Name Role Phone Unavailable Primary Care Provider Unavailabl e Encounter Details Date Type Department Care Team (Late st Contact Info) Description 09/05/[address] [facility] Information Management [address] [place] [address] Provider, Not In System Social History Tobacco [...]
== END 2025-02-06 12:28 | disposition home or self-care (01) ==
LOC: HO.HMCC 11:10
PROVIDERS: PCP Nurse Practitioner Family; Visit Provider Nurse Practitioner Family
DX: I10 Essential (primary) hypertension (principal); R01.1 Cardiac murmur, unspecified

== ENCOUNTER → 2025-02-06 11:10 | Outpatient (BNVA) | payer OTHER, SELFPAY | PROVIDERS: PCP Nurse Practitioner Family; Visit Provider Nurse Practitioner Family | DX: I10 Essential (primary) hypertension (principal); R51.9 Headache, unspecified; R01.1 Cardiac murmur, unspecified; N40.1 Benign prostatic hyperplasia with lower urinary tract symptoms | CPT/HCPCS: 96127; 99212 ==